=== PATIENT | female | born 1995 | race Caucasian/White ===

== ENCOUNTER 2016-05-09 19:15 | Outpatient (CLI) | payer OTHER ==
[~2016-05-09] VITALS: Ht 167.6 cm; Wt 90.0 kg
[~2016-05-09 19:15] MED LIST: ONDA4TAB46 PO; PRENTAB26 PO
[2016-05-09 19:36] VITALS: Ht 167.6 cm; Wt 90.0 kg
[2016-05-10] MEDS ORDERED: PEDICHW34 PO (08:51)
[2016-05-10] MEDS ORDERED: PRENATAL GUMMY PO (08:52)
== END 2016-05-09 21:17 | disposition home or self-care (01) ==
LOC: C.OPB 19:15 → C.LD 19:16 → C.OPB 21:17
PROVIDERS: ATTEND Obstetrics & Gynecology
DX: O48.0 Post-term pregnancy (principal); Z3A.41 41 weeks gestation of pregnancy

== ENCOUNTER 2016-05-10 07:59 | Inpatient (IN) | payer OTHER ==
[~2016-05-10] VITALS: Ht 167.6 cm; Wt 89.5 kg
[2016-05-10] MEDS ORDERED: LACTATED RINGER'S 1000ML 500 ML IV PRN ×2 (08:32→12:50)
[2016-05-10] MEDS ORDERED: LACTATED RINGER'S 1000ML 1,000 ML IV PRN (08:32)
[2016-05-10] MEDS ORDERED: OXYTOCIN 30 UNITS/500ML NSS IV PRN ×2 (08:45→23:15)
[2016-05-10] MEDS ORDERED: PEDICHW34 PO (08:51)
[2016-05-10] MEDS ORDERED: PRENATAL GUMMY PO (08:52)
[2016-05-10 08:59] VITALS: Ht 167.6 cm; Wt 89.5 kg
[2016-05-10 09:11] LABS: MEAN CELL VOLUME 86.4 fL (80-100); MEAN CORPUSCULAR HEMOGLOBIN 28.7 pg (25-34); MEAN CORPUSCULAR HGB CONC 33.2 g/dl (32-36); MEAN PLATELET VOLUME 9.7 fL (7.4-10.4); PLATELET COUNT 247 K/uL (130-400); RED BLOOD COUNT 4.28 M/uL (4.2-5.4); WHITE BLOOD COUNT 17.01 K/uL (4.8-10.8)
[2016-05-10] MEDS: LACTATED RINGER'S 1000ML 1,000 ML IV SCH ×3 (09:24→21:12)
[2016-05-10 09:38] LABS: ALT/SGPT 15 U/L (12-78); BLOOD UREA NITROGEN 5 mg/dl (7-18); BUN/CREATININE RATIO 10.7 (10-20); CALCIUM 9.1 mg/dl (8.5-10.1); CARBON DIOXIDE 18 mmol/L (21-32); CHLORIDE 108 mmol/L (98-107); CREATININE 0.46 mg/dl (0.60-1.20); GLUCOSE 85 mg/dl (70-99); POTASSIUM 3.5 mmol/L (3.5-5.1); SODIUM 140 mmol/L (136-145)
[2016-05-10 09:41] LABS: ALB/GLOB RATIO 0.6 (0.9-2); ALKALINE PHOSPHATASE 129 U/L (45-117); AST/SGOT 16 U/L (15-37)
[2016-05-10] MEDS ORDERED: BUPIVACAINE 0.25% 30 ML VIAL ONE ×2 (12:10→20:59)
[2016-05-10] MEDS ORDERED: FENTANYL 2MCG/ML ROPIV 1.25MG/ML 100ML BAG EPI ONE (12:10)
[2016-05-10] MEDS ORDERED: FENTANYL CITRATE INJ 50 MCG/1 ML 2 ML VIAL ONE (12:10)
[2016-05-10] MEDS ORDERED: EpHEDrine SULFATE INJ 50 MG/ML AMP ONE (12:10)
[2016-05-10] MEDS ORDERED: NALOXONE HCL INJ 1 MG in SODIUM CHLORIDE 0.9% 1000ML 1,000 ML IV PRN ×4 (12:50)
[2016-05-10] MEDS ORDERED: ONDANSETRON INJ 2 MG/ML 2 ML VIAL IV PRN (13:00)
[2016-05-10] MEDS ORDERED: DiphenhydrAMINE HCL 50 MG/ML VIAL IV PRN (13:00)
[2016-05-10] MEDS ORDERED: EpHEDrine SULFATE INJ 50 MG/ML AMP IV PRN (13:00)
[2016-05-10] MEDS ORDERED: NALBUPHINE HCL INJ 10 MG/ML AMP IV PRN (13:00)
[2016-05-10] MEDS ORDERED: NALOXONE HCL INJ 0.4 MG/1 ML VIAL/CARP IV PRN (13:00)
[2016-05-10] MEDS: FENTANYL 2MCG/ML ROPIV 1.25MG/ML 100ML BAG EPI PRN ×3 (15:03→22:42)
[2016-05-10] MEDS ORDERED: ACETAMINOPHEN 325 MG TAB ONE (19:26)
[2016-05-10] MEDS ORDERED: ACETAMINOPHEN 325 MG TAB PO STA (19:26)
[2016-05-10] MEDS ORDERED: AMPICILLIN IV 2,000 MG in SODIUM CHLOR 0.9% AD-VAN 100ML 100 ML IV SCH (20:00)
[2016-05-10] MEDS ORDERED: SUPERCREAM 0.870 % 15GM JAR EXT PRN (23:15)
[2016-05-10] MEDS ORDERED: OXYCODONE/ACETAMINOPHEN 5-325 TAB PO PRN (23:15)
[2016-05-10] MEDS ORDERED: LANOLIN OINT EXT PRN ×2 (23:15)
[2016-05-10] MEDS ORDERED: ACETAMINOPHEN/CODEINE 300/30MG TAB PO PRN ×2 (23:15)
[2016-05-10] MEDS ORDERED: BENZOCAINE 20% AER SPR 82.5 GM CAN EXT PRN (23:15)
[2016-05-10] MEDS ORDERED: DIPHTHERIA/TETANUS/PERTUSSIS 0.5 ML SYR/VIAL IM. ONE (23:15)
[2016-05-10] MEDS ORDERED: HYDROCORTISONE ACETATE 25 MG SUPP PR PRN (23:15)
[2016-05-10] MEDS ORDERED: ACETAMINOPHEN 325 MG TAB PO PRN (23:15)
[2016-05-11] MEDS: IBUPROFEN 600 MG TAB PO PRN ×3 (00:24→15:56)
--- NOTE | 2016-05-11 00:28 | DELIVERY SUMMARY ---
DATE OF OPERATION: 05/10/2016 PREOPERATIVE DIAGNOSES: 1. Intrauterine at 41-3/7 week. 2. Postdates induction. POSTOPERATIVE DIAGNOSES: Same. PROCEDURES: 1. Yi catheter for cervical ripening. 2. Pitocin augmentation. 3. Amniotomy. 4. Epidural anesthesia. 5. Normal spontaneous vaginal delivery. 6. Second-degree perineal laceration with repair. SURGEON: Dr. Rivas. ANESTHESIA: Epidural. ESTIMATED BLOOD LOSS: 400 mL. PROCEDURE: The patient presented to labor and delivery on the morning of induction after having a Yi catheter placed Tuesday. The catheter had fallen out at 3:00 a.m. She was found to be 4, 75%, -2. Pitocin augmentation was started. When she had got into a good regular pattern, an amniotomy was performed with the cervix exam being the same. The patient then underwent an epidural anesthesia. She progressed, with Pitocin augmentation, to complete, complete and +2 station. She pushed for approximately an hour to deliver a viable male in PORTIA presentation. The anterior shoulder was immediately delivered and then the body was delivered. There was just a short cord, which was clamped and cut on the perineum and the was placed on the maternal abdomen for drying and attention. Cord blood and segment were obtained. Placenta was delivered spontaneously, intact with a 3-vessel cord. Cervix, sulci and rectum were examined and found to be intact. A second-degree perineal laceration was repaired with 3-0 Vicryl in normal standard fashion. Hemostasis obtained with dilute Pitocin and fundal massage. Estimated blood loss was 400 mL. Apgars 8 and 9. Mother and baby doing well at the end of this delivery. I attest to the content of the Intraoperative Record and any orders documented therein. Any exceptio ns are noted below.
[2016-05-11 02:10] VITALS: BP 106/71; PULSE 111; TEMP 37.2; O2SAT 96
[2016-05-11] MEDS ORDERED: ONDANSETRON INJ 2 MG/ML 2 ML VIAL ONE (02:13)
[2016-05-11] MEDS ORDERED: NURSING VERBAL MED ORDER ONE (02:15)
[2016-05-11] MEDS ORDERED: ONDANSETRON INJ 2 MG/ML 2 ML VIAL IV STA (02:22)
[2016-05-11 03:55] VITALS: BP 120/76; PULSE 112; TEMP 36.8; O2SAT 98
--- NOTE | 2016-05-11 06:45 | Medical Student: [facility] ---
Med Student FLY RAISER LOCKSTITCH Progress Nt Date of Service May 11, 2016. Subjective conversation w/ patient, physical exam, chart review Ambulation: limited ambulation (due to light-headedness) Voiding: requires PRN straight cath Passing Gas: Yes Diet Tolerance: Regular Diet Lochia: Moderate Feeding Type: Breast Feeding Pain: controlled with Motrin Review of Systems Constitutional: No fever, No weight loss Respiratory: No shortness of breath Cardiac: No chest pain Abdomen: No nausea, No pain Female : + problem reported (see Subjective) Objective Vital Signs Date Time Temp Pulse Resp B/P Pulse Ox O2 Delivery O2 Flow Rate FiO2 05/11/16 03:55 36.8 112 16 120/76 98 Room Air 05/11/16 03:55 98 Room Air 05/11/16 02:10 37.2 111 16 106/71 96 Room Air Physical Exam General Appearance: WELL-APPEARING, WD/WN Respiratory/Chest: lungs clear, normal breath sounds Cardiovascular: regular rate, rhythm, no murmur Abdomen: non tender, soft Fundus: Firm, Relation to Umbilicus (1cm below umbilicus) Extremities: non-tender, no pedal edema Laboratory Results Last 24 Hours Test 05/10/16 08:55 05/11/16 04:44 White Blood Count 17.01 K/uL Red Blood Count 4.28 M/uL Hemoglobin 12.3 g/dL Hematocrit 37.0 % Mean Corpuscular Volume 86.4 fL Mean Corpuscular Hemoglobin 28.7 pg Mean Corpuscular Hemoglobin Concent 33.2 g/dl RDW Standard Deviation 50.5 fL RDW Coefficient of Variation 16.1 % Platelet Count 247 K/uL Mean Platelet Volume 9.7 fL Sodium Level 140 mmol/L Potassium Level 3.5 mmol/L Chloride Level 108 mmol/L Carbon Dioxide Level 18 mmol/L Anion Gap 14.0 mmol/L Blood Urea Nitrogen 5 mg/dl Creatinine 0.46 mg/dl Est Creatinine Clear Calc Drug Dose 214.3 ml/min Estimated GFR () > 150.0 Estimated GFR (Non- 140.2 BUN/Creatinine Ratio 10.7 Random Glucose 85 mg/dl Calcium Level 9.1 mg/dl Total Bilirubin 0.2 mg/dl Aspartate Amino Transf (AST/SGOT) 16 U/L Alanine Aminotransferase (ALT/SGPT) 15 U/L Alkaline Phosphatase 129 U/L Total Protein 6.9 gm/dl Albumin 2.7 gm/dl Globulin 4.2 gm/dl Albumin/Globulin Ratio 0.6 Medications Current Inpatient Medications Medications (Trade) Dose Ordered Sig/Anni Route Start Time Stop Time Status Last Admin Dose Admin Oxytocin (Pitocin IV) 30 units UD PRN IV 05/10/16 23:15 06/09/16 23:14 Benzocaine (Dermoplast Aero Spr) 1 appln PRN PRN EXT 05/10/16 23:15 06/09/16 23:14 Cocaine HCl (Supercream 0.870% Cr) BID PRN EXT 05/10/16 23:15 05/24/16 23:14 Hydrocortisone Acetate (Anusol Hc Supp) 25 mg BID PRN [place] 05/10/16 23:15 06/09/16 23:14 Lanolin (Lanolin Oint) PRN PRN EXT 05/10/16 23:15 06/09/16 23:14 Prenat Multivit/ [employer]/Iron/Folic Ac ( Vitamin Tab) 1 tab DAILY PO 05/11/16 08:00 06/10/16 07:59 Ibuprofen (Motrin Tab) 600 mg Q4H PRN PO 05/10/16 23:15 06/09/16 23:14 05/11/16 04:28 600 MG Acetaminophen (Tylenol Tab) 650 mg Q6H PRN PO 05/10/16 23:15 06/09/16 23:14 Acetaminophen/ Codeine Phosphate (Tylenol w/ Codeine #3 Tab) 1 tab Q4H PRN PO 05/10/16 23:15 06/09/16 23:14 Acetaminophen/ Codeine Phosphate (Tylenol w/ Codeine #3 Tab) 2 tab Q4H PRN PO 05/10/16 23:15 06/09/16 23:14 Docusate Sodium (coLACE CAP) 100 mg BID PO 05/11/16 08:00 06/10/16 07:59 Assessment and Plan Post- Day Number: 1 Continue Routine Care: 21 year-old female post- day1 had vaginal delivery with secondary perineal laceration repair yesterday. A+, GBS-, Rubella immune Plan Control pain with Motrin Tolerate regular diet well Encourage ambulation Straight cath prn.
[2016-05-11 06:54] LABS: HEMATOCRIT 29.3 % (37-47)
--- NOTE | 2016-05-11 06:54 | Progress Note ---
Subjective May 11, 2016. Subjective conversation w/ patient, physical exam Ambulation: limited ambulation (lightheaded with walking) Voiding: requires PRN straight cath Passing Gas: Yes Diet Tolerance: Regular Diet Lochia: Moderate Feeding Type: Breast Feeding Pain: Well controlled with Motrin Review of Systems Constitutional: No chills, No fever Respiratory: No cough, No shortness of breath Cardiac: No chest pain Breast: No breast pain Abdomen: No nausea, No pain, No vomiting Female : No dysuria Objective Vital Signs Date Time Temp Pulse Resp B/P Pulse Ox O2 Delivery O2 Flow Rate FiO2 05/11/16 03:55 36.8 112 16 120/76 98 Room Air 05/11/16 03:55 98 Room Air 05/11/16 02:10 37.2 111 16 106/71 96 Room Air Physical Exam General Appearance: WELL-APPEARING, WD/WN, NO APPARENT DISTRESS Respiratory/Chest: lungs clear, normal breath sounds Cardiovascular: regular rate, rhythm, no gallop, no murmur Abdomen: non tender, soft Fundus: Firm, Relation to Umbilicus (1cm below) Extremities: no calf tenderness Laboratory Results Last 24 Hours Test 05/10/16 08:55 05/11/16 06:30 White Blood Count 17.01 K/uL Red Blood Count 4.28 M/uL Hemoglobin 12.3 g/dL Hematocrit 37.0 % Mean Corpuscular Volume 86.4 fL Mean Corpuscular Hemoglobin 28.7 pg Mean Corpuscular Hemoglobin Concent 33.2 g/dl RDW Standard Deviation 50.5 fL RDW Coefficient of Variation 16.1 % Platelet Count 247 K/uL Mean Platelet Volume 9.7 fL Sodium Level 140 mmol/L Potassium Level 3.5 mmol/L Chloride Level 108 mmol/L Carbon Dioxide Level 18 mmol/L Anion Gap 14.0 mmol/L Blood Urea Nitrogen 5 mg/dl Creatinine 0.46 mg/dl Est Creatinine Clear Calc Drug Dose 214.3 ml/min Estimated GFR () > 150.0 Estimated GFR (Non- 140.2 BUN/Creatinine Ratio 10.7 Random Glucose 85 mg/dl Calcium Level 9.1 mg/dl Total Bilirubin 0.2 mg/dl Aspartate Amino Transf (AST/SGOT) 16 U/L Alanine Aminotransferase (ALT/SGPT) 15 U/L Alkaline Phosphatase 129 U/L Total Protein 6.9 gm/dl Albumin 2.7 gm/dl Globulin 4.2 gm/dl Albumin/Globulin Ratio 0.6 Medications Current Inpatient Medications Medications (Trade) Dose Ordered Sig/Anni Route Start Time Stop Time Status Last Admin Dose Admin Oxytocin (Pitocin IV) 30 units UD PRN IV 05/10/16 23:15 06/09/16 23:14 Benzocaine (Dermoplast Aero Spr) 1 appln PRN PRN EXT 05/10/16 23:15 06/09/16 23:14 Cocaine HCl (Supercream 0.870% Cr) BID PRN EXT 05/10/16 23:15 05/24/16 23:14 Hydrocortisone Acetate (Anusol Hc Supp) 25 mg BID PRN [place] 05/10/16 23:15 06/09/16 23:14 Lanolin (Lanolin Oint) PRN PRN EXT 05/10/16 23:15 06/09/16 23:14 Prenat Multivit/ [place]/Iron/Folic Ac ( Vitamin Tab) 1 tab DAILY PO 05/11/16 08:00 06/10/16 07:59 Ibuprofen (Motrin Tab) 600 mg Q4H PRN PO 05/10/16 23:15 06/09/16 23:14 05/11/16 04:28 600 MG Acetaminophen (Tylenol Tab) 650 mg Q6H PRN PO 05/10/16 23:15 06/09/16 23:14 Acetaminophen/ Codeine Phosphate (Tylenol w/ Codeine #3 Tab) 1 tab Q4H PRN PO 05/10/16 23:15 06/09/16 23:14 Acetaminophen/ Codeine Phosphate (Tylenol w/ Codeine #3 Tab) 2 tab Q4H PRN PO 05/10/16 23:15 06/09/16 23:14 Docusate Sodium (coLACE CAP) 100 mg BID PO 05/11/16 08:00 06/10/16 07:59 Assessment and Plan Post- Day#: 1 Continue Routine Care: - Vital Signs reviewed and WNL (temp max 36.8) - Blood Type: A+, GBS- , Rubella Immune - Patient doing well clinically - Encourage Ambulation today. Patient lightheaded yesterday but today is feeling better and has been eating and getting fluids. - Patient received straight cath yesterday, ensure urination returns to normal today. At bedside this morning patient states she has no urge to urinate. - Tolerating PO Diet - Pain well controlled with [place] Resident Physician Supervision Note: I interviewed and examined the patient. Discussed with Dr. Mann and agree with findings and plan as documented in the note. Any exceptions or clarifications are listed here: Doing better this am. If unable to void, may need to consider Yi. Documented By: Sabina Rivas
[2016-05-11 07:25] VITALS: BP 105/69; PULSE 89; TEMP 36.7; O2SAT 98
[2016-05-11] MEDS: DOCUSATE SODIUM 100 MG CAP PO SCH ×2 (08:32→20:02)
[2016-05-11] MEDS: PRENATAL VITAMIN TAB PO SCH (08:32)
--- NOTE | 2016-05-11 10:33 | Anesthesia Procedure Note ---
Anesthesia Epidural Removal Nt Date & Time May 11, 2016 at 10:33 Vital Signs Vital Signs Past 12 Hours Date Time Temp Pulse Resp B/P Pulse Ox O2 Delivery O2 Flow Rate FiO2 05/11/16 07:25 Room Air 05/11/16 07:25 36.7 89 16 105/69 98 Room Air 05/11/16 03:55 36.8 112 16 120/76 98 Room Air 05/11/16 03:55 98 Room Air 05/11/16 02:10 37.2 111 16 106/71 96 Room Air Notes Mental Status: alert / awake / arousable, participated in evaluation Nausea / Vomiting: adequately controlled Pain: adequately controlled Airway Patency, RR, SpO2: stable & adequate BP & HR: stable & adequate Hydration State: stable & adequate Neuraxial Anesthesia: was administered Anesthetic Complications: no major complications apparent, pt satisfied with anesthetic care Epidural: removed without complications, with tip intact
[2016-05-11 11:25] VITALS: BP 103/63; PULSE 98; TEMP 36.6; O2SAT 100
[2016-05-11 15:40] VITALS: BP 111/67; PULSE 100; TEMP 36.7; O2SAT 98
[2016-05-11 20:00] VITALS: BP 106/69; PULSE 111; TEMP 36.6
[2016-05-12] VITALS: BP 101/69; PULSE 99; TEMP 36.4
--- NOTE | 2016-05-12 07:00 | Progress Note ---
Subjective May 12, 2016. Subjective conversation w/ patient, physical exam Ambulation: ambulating normally Voiding: no voiding problems Passing Gas: Yes Diet Tolerance: Regular Diet Lochia: Small Feeding Type: Breast Feeding Pain: No pain reported this morning, minor cramping Review of Systems Constitutional: No chills, No fever Respiratory: No cough, No shortness of breath Cardiac: No chest pain Breast: No breast pain Abdomen: No nausea, No pain, No vomiting Female : No dysuria Objective Vital Signs Date Time Temp Pulse Resp B/P Pulse Ox O2 Delivery O2 Flow Rate FiO2 05/12/16 00:00 Room Air 05/12/16 00:00 36.4 99 16 101/69 05/11/16 20:00 36.6 111 16 106/69 05/11/16 15:40 98 Room Air 05/11/16 15:40 36.7 100 20 111/67 98 Room Air 05/11/16 11:25 36.6 98 16 103/63 100 Room Air 05/11/16 07:25 Room Air 05/11/16 07:25 36.7 89 16 105/69 98 Room Air Physical Exam General Appearance: WELL-APPEARING, WD/WN, NO APPARENT DISTRESS Respiratory/Chest: lungs clear, normal breath sounds Cardiovascular: regular rate, rhythm, no gallop, no murmur Abdomen: non tender, soft Fundus: Firm, Relation to Umbilicus (1cm below umbilicus) Extremities: no calf tenderness Medications Current Inpatient Medications Medications (Trade) Dose Ordered Sig/Anni Route Start Time Stop Time Status Last Admin Dose Admin Oxytocin (Pitocin IV) 30 units UD PRN IV 05/10/16 23:15 06/09/16 23:14 Benzocaine (Dermoplast Aero Spr) 1 appln PRN PRN EXT 05/10/16 23:15 06/09/16 23:14 05/11/16 08:33 1 APPLN Cocaine HCl (Supercream 0.870% Cr) BID PRN EXT 05/10/16 23:15 05/24/16 23:14 05/11/16 08:32 15 GM Hydrocortisone Acetate (Anusol Hc Supp) 25 mg BID PRN [place] 05/10/16 23:15 06/09/16 23:14 Lanolin (Lanolin Oint) PRN PRN EXT 05/10/16 23:15 06/09/16 23:14 Prenat Multivit/ [place]/Iron/Folic Ac ( Vitamin Tab) 1 tab DAILY PO 05/11/16 08:00 06/10/16 07:59 05/11/16 08:32 1 TAB Ibuprofen (Motrin Tab) 600 mg Q4H PRN PO 05/10/16 23:15 06/09/16 23:14 05/11/16 15:56 600 MG Acetaminophen (Tylenol Tab) 650 mg Q6H PRN PO 05/10/16 23:15 06/09/16 23:14 Acetaminophen/ Codeine Phosphate (Tylenol w/ Codeine #3 Tab) 1 tab Q4H PRN PO 05/10/16 23:15 06/09/16 23:14 Acetaminophen/ Codeine Phosphate (Tylenol w/ Codeine #3 Tab) 2 tab Q4H PRN PO 05/10/16 23:15 06/09/16 23:14 Docusate Sodium (coLACE CAP) 100 mg BID PO 05/11/16 08:00 06/10/16 07:59 05/11/16 20:02 100 MG Assessment and Plan Post- Day#: 2 Continue Routine Care: Resident Physician Supervision Note: I interviewed and examined the patient. Discussed with Dr. Mann and agree with findings and plan as documented in the note. Any exceptions or clarifications are listed here: [None] Documented By: Betsy Rawls - Vital Signs reviewed and WNL (temp max 36.4) - Blood Type: A+, GBS- , Rubella Immune - Patient doing well clinically - Ambulating well - Tolerating PO Diet - No pain reported this morning - Discharge today
--- NOTE | 2016-05-12 07:03 | Discharge Instructions ---
Discharge Instructions Admission Reason for Admission: Induction Discharge Discharge Diagnosis / Problem: Vaginal delivery Discharge Goals Goal(s): Routine recovery after delivery Medications Continue Dispensed Medications: supercream, dermaplast, tucks, lansinoh Activity Recommendations Activity Limitations: per Instructions/Follow-up section . Instructions / Follow-Up Instructions / Follow-Up ACTIVITY RECOMMENDATIONS: * Gradual return to full activity over the next 2-3 weeks. * No lifting - nothing heavier than baby over the next 2-3 weeks. * Do not engage in vigorous exercise, sexual activity or sports until cleared by your physician. * Do not drive or operate any motorized equipment until cleared by your physician. * You may shower/bathe daily. MEDICATIONS: For discomfort or pain, you may use Acetaminophen (Tylenol), Ibuprofen (Advil), or Naproxen (Aleve) following the package directions. For constipation you may use Colace following the package directions. BREAST CARE: If you are not breast feeding: * Wear a supportive bra 24 hours a day for one to two weeks. * Avoid stimulating your breasts and nipples as much as possible during the first few weeks after delivery. * When taking a shower, have the warm water hit your back, not breasts. * When your breasts feel full, apply ice packs. Usually three to four times a day helps ease the discomfort. * Take a mild pain medication (Tylenol / Motrin) when you are uncomfortable. If breast feeding: * Use breast milk to lubricate nipples. Lansinoh cream may be used for sore nipples. You do not need to remove cream prior to breast feeding. If using a different brand of cream, check the label for directions regarding removal of cream prior to nursing. * Wear a supportive bra. * If having problems with breasts or breast feeding, call a oracle database consultant or your health care provider. EPISIOTOMY CARE: After delivery, if you have an episiotomy (stitches), the following steps will ease discomfort and aid healing. * For the first 24 hours after delivery, place ice packs next to your episiotomy to help reduce swelling. * After the first 24 hour-period, sitz baths, either portable or in the tub, are suggested. A shower with a shower arm sprayed over the episiotomy may be comforting. * Shanda care should be done after each voiding and bowel movement. Squirt warm water from a plastic bottle over the perineum (region of the body between the anus and urinary opening) and pat dry. * Use Dermoplast to ease discomfort. Shake container. [place] directly over the episiotomy. Place a Tucks on a clean sanitary pad next to your episiotomy. SPECIAL CARE INSTRUCTIONS: When you are discharged from the hospital, it is important for you to follow the instructions listed below: * During the first week at home, you should be able to care for yourself and your baby. In addition, the usual light household activities are encouraged. * Limit your activities to the way you feel. Do not try to clean the house or move furniture. Be sensible. * If you actively engage in sports and have done so up until the time of your delivery, you may resume these activities as soon as you feel able. This may take up to one month or even longer. Use good judgment. * Continue to take your vitamins for at least six weeks after the of your baby. * Your diet need not be limited unless you were on a special diet before your delivery. Breast-feeding mothers need around 2500 calories per day and at least 64-80 ounces of fluid per day (8 to 10 glasses). * You should eat foods from the four major food groups. Crash diets or fad diets are to be avoided. Eating lean meats, fresh fruits and vegetables, low-fat dairy products, high fiber foods and a regular exercise program, will help you get back to your pre- weight without putting your health at risk. * Constipation is sometimes a problem after delivery. Take a mild laxative as needed. If breast feeding, Milk of Magnesia is acceptable to use. You may use a suppository or Fleets enema if no episiotomy. * A daily shower or tub bath is suggested. Be sure to thoroughly and gently dry the perineum. * A bloody vaginal discharge will usually continue until around four weeks post . A small amount of bleeding may continue for as long as six weeks. Vaginal discharge changes from the bright red bleeding after delivery to pink then brownish and finally yellowish-pink before becoming white and disappearing. * Bleeding may increase with activity. Your first period may come in 4-8 weeks. If you are breast feeding, your period may be delayed even longer. * [place] (sex) can begin whenever both you and your partner feel comfortable and do not have any form of genital infection. It is recommended that you wait at least six weeks for internal and external healing to occur. If you have questions, please talk to your health care practitioner. A condom should be used to prevent infection and . * Foreplay, gentle intercourse and lubrication is very important the first several times to prevent pain. A water-based lubricant such as K-Y jelly or Astroglide may be used. * If you have RH negative blood and your baby is RH positive, you will receive RHOGAM by injection prior to discharge. The nurse will give you a card to keep with you that has the date and place that you received RHOGAM after delivery. * During your care, you had a Rubella screen done to check for the presence of rubella antibodies in your blood. If your test was negative, you will receive a Rubella vaccine prior to discharge. This vaccine may cause a fever, soreness at the injection site and flu-like symptoms. If these symptoms persist, notify your health care practitioner. is not advised for one month after a Rubella vaccine. * Verbalizes understanding of car seat law as reviewed with patient nursing. * Car Seat hand-out given and reviewed with patient by nursing. * Shaken baby information reviewed with patient by nursing. Call you doctor if: * Heavy bleeding (saturating several pads an hour) or passing clots the size of your fist. * A fever >101 degrees F (38.3 degrees C) on two occasions four hours apart and /or chills. * Unusual pain in the pelvic or vaginal areas. * "Baby Blues" lasting longer than two weeks. If you have any questions or concerns, call your health care practitioner at . FOLLOW UP VISIT: * Please call the office at to schedule a 6 week examination. It is important you keep this appointment. It is important for you to make arrangements for either yearly or twice yearly check-ups thereafter. Current Hospital Diet Patient's current hospital diet: Regular Diet Discharge Diet Recommended Diet: Regular Diet Pending Studies Studies pending at discharge: no Medical Emergencies . Who to Call and When: Medical Emergencies: If at any time you feel your situation is an emergency, please call 911 immediately. . Non-Emergent Contact Non-Emergency issues call your: Firer Watertender . . "Provider Documentation" section prepared by Neo Mann. VTE Core Measure Inpt VTE Proph given/why not?: Treatment not indicated
[2016-05-12 08:15] VITALS: BP 125/81; PULSE 91; TEMP 36.7
[2016-05-12] MEDS: PRENATAL VITAMIN TAB PO SCH (09:03)
[2016-05-12] MEDS: DOCUSATE SODIUM 100 MG CAP PO SCH (09:03)
[2016-05-12] MEDS ORDERED: MISC-696 (13:22)
[2016-05-12 14:25] VITALS: BP_DIAS 81; PULSE 91; TEMP 36.7
== END 2016-05-12 14:25 | disposition home or self-care (01) | DRG 775 ==
LOC: C.LD 07:59 → C.OBG 05-11 02:10
PROVIDERS: ADMIT Obstetrics & Gynecology; ATTEND Obstetrics & Gynecology
PROC: 10E0XZZ Delivery of Products of Conception, External Approach (ICD-10-PCS; principal; 2016-05-10)
PROC: 0KQM0ZZ Repair Perineum Muscle, Open Approach (ICD-10-PCS; principal; 2016-05-10)
PROC: 3E0P7GC Introduction of Other Therapeutic Substance into Female Reproductive, Via Natural or Artificial Opening (ICD-10-PCS; 2016-05-10)
DX: O48.0 Post-term pregnancy (principal); O70.1 Second degree perineal laceration during delivery; Z3A.41 41 weeks gestation of pregnancy; Z37.0 Single live birth

== ENCOUNTER → 2017-01-19 | Outpatient (CLI) | payer BC ==
[~2017-01-19] MED LIST changes: +CEPH500C PO; +CEPH500C2 PO; +HYDR-5688 PO; +MISC-696; -ONDA4TAB46 PO; +PRENATAL GUMMY PO; -PRENTAB26 PO
--- NOTE | 2017-01-19 12:45 | DIAGNOSTIC IMAGING REPORT ---
R KNEE 4 OR MORE VIEWS CLINICAL HISTORY: 21 years-old Female presenting with BILATERAL KNEE PAIN. TECHNIQUE: Frontal, lateral, tunnel, and sunrise views of the right knee were obtained. COMPARISON: Correlation made to plain radiographs of the left knee performed the same day. FINDINGS: No acute fracture or malalignment. No degenerative change. No large knee joint effusion. No radiographic evidence of soft tissue abnormality. No subluxation of the patella. IMPRESSION: No acute osseous injury of the right knee. Electronically signed by: Maurizio Pleitez M.D. 01/19/2017 12:44 PM Dictated Date/Time: 01/19/2017 12:43 PM
--- NOTE | 2017-01-19 13:30 | DIAGNOSTIC IMAGING REPORT ---
L KNEE 4 OR MORE VIEWS CLINICAL HISTORY: Bilateral knee pain. No recent trauma. COMPARISON: None FINDINGS: Alignment of the left knee is anatomic. No fracture or osseous lesion is identified. There is no joint effusion. The joint spaces are preserved. IMPRESSION: Normal left knee radiographs. Electronically signed by: Talha Reyes M.D. 01/19/2017 1:29 PM Dictated Date/Time: 01/19/2017 1:28 PM
== END | disposition home or self-care (01) ==
LOC: C.RAD1850 11:36
PROVIDERS: ATTEND Physician Assistant
DX: M25.561 Pain in right knee (principal); M25.562 Pain in left knee

== ENCOUNTER 2017-01-22 09:10 | Emergency (ER) | payer BC ==
[~2017-01-22] VITALS: Ht 167.6 cm; Wt 79.0 kg
[~2017-01-22 09:10] MED LIST changes: -CEPH500C PO; -CEPH500C2 PO; -HYDR-5688 PO
[2017-01-22 09:24] VITALS: TEMP 37; Ht 167.6 cm; Wt 79.0 kg
[2017-01-22] MEDS ORDERED: XYLOCAINE 1%/SOD BICARB 20 ML VIAL INFIL ONE (10:00)
[2017-01-22] MEDS ORDERED: CEPH500C PO (10:20)
[2017-01-22 10:33] VITALS: BP 122/82; PULSE 92; O2SAT 98
--- NOTE | 2017-01-22 17:27 | EMERGENCY ROOM VISIT NOTE ---
ED Visit Note First contact with patient: 09:39 CHIEF COMPLAINT: Infected cyst on buttock HISTORY OF PRESENT ILLNESS: This 22-year-old white female patient has had a painful swelling at the top of the gluteal crease of the buttocks for 2 days. There has been no injury to the area and no drainage. The patient denies fever , chills, or loss of appetite. The pain is steady, moderately severe, and hurts worse when sitting or bending over. It has become worse with time. Her mother accompanies her today. No prior history of similar condition. REVIEW OF SYSTEMS: Head: No headache, injury or neck pain. Cardiac: No chest pain, diaphoresis, dyspnea on exertion, orthopnea, pedal edema, or palpitations. Respiratory: No cough, change in sputum, wheezes, hemoptysis, shortness of breath, or stridor. Gastrointestinal: No abdominal pain, blood in stools, diarrhea, loss of appetite, nausea, or vomiting. General: No fever or chills, fatigue, loss of appetite, or significant recent weight gain or loss. PMH: Benign Previous surgeries: [place] tooth extraction Current medications: None Allergies: NKDA Family history: Noncontributory. SOCIAL HISTORY: Patient lives at home. No tobacco use, no EtOH use. PHYSICAL EXAM: Vital Signs: Afebrile. Reviewed and filed in patient's chart. Skin: Warm and dry with good turgor. No rashes or lesions. No ecchymosis. There is a fluctuant, tender swelling at the top of the gluteal crease. It is erythematous. There is no pointing. It feels like a typical subcutaneous abscess. It is very tender to touch. Redness measures approximately 1 in diameter. The patient is not diaphoretic. No abrasions. General: The patient appears well in general and is not in acute distress. Laying on a bed. Alert and oriented. Musculoskeletal: Gross motor function of the lower extremities is intact and unremarkable. Neurologic: Gross sensation is intact across lower extremities and pelvis by soft touch. EMERGENCY DEPARTMENT COURSE: After Betadine cleansing and administering local 1 % lidocaine anesthesia (4 mL), the abscess was incised with a number 11 scalpel blade. A large amount of foul-smelling purulent material drained and more was expressed by pressure. The abscess cavity was then irrigated using normal sterile saline under jet spray lavage. A needle flatbed driver was used to break up any interior loculations. It was irrigated a second time with a small amount of clot material expressed. 1/2 inch iodoform gauze was used as a drain and a dressing was applied. DIAGNOSIS: Pilonidal cyst-abscess DISCHARGE INSTRUCTIONS AND TREATMENT: Patient was educated regarding today's findings. Conservative care measures were discussed. Return in 48 hours for packing removal. She was prescribed Keflex 500 mg 4 times a day for 5 days. Change the dressing if it becomes bloody or soiled. Tylenol and Motrin every 6 hours if needed for the pain. Instruction sheet was provided on sitz baths, to be started after her packing is removed. Possibility of having this excised by General surgery was discussed, if it should recur. Problem List Surgical Problems: (1) History of wisdom tooth extraction Status: Resolved Current/Historical Medications Scheduled Cephalexin Monohydrate (Keflex), 500 MG PO QID Allergies Coded Allergies: No Known Allergies (Verified , None, 01/22/17) Vital Signs Date Time Temp Pulse Resp B/P (MAP) Pulse Ox O2 Delivery O2 Flow Rate FiO2 01/22/17 10:33 92 16 122/82 98 01/22/17 09:24 37.0 106 18 131/94 98 Room Air Departure Information Impression Primary Impression: Pilonidal cyst with abscess Dispostion Home / Self-Care Prescriptions Cephalexin Monohydrate (Keflex) 500 Mg Cap 500 MG PO QID, #20 CAP Prov: Bobby Webber,P.A. 01/22/17 Forms WORK / SCHOOL INSTRUCTIONS, HOME CARE DOCUMENTATION FORM, MOTRIN USE, TYLENOL USE, IMPORTANT VISIT INFORMATION Patient Instructions [facility], [facility] Additional Instructions Follow-up with your PCP or return to the ED in 2 days for packing removal Start sitz baths at that point-sit for 5-10 minutes in warm soapy water 3-4 times per day Keflex one pill 4 times a day 5 days Tylenol and Motrin every 6 hours as needed for discomfort Use a doughnut pillow when sitting Return to the ED for any other concerns
== END 2017-01-22 10:34 | disposition home or self-care (01) ==
LOC: C.EDB 09:12 → C.EDA 10:34
DX: L05.01 Pilonidal cyst with abscess (principal)

== ENCOUNTER 2017-01-24 10:18 | Emergency (ER) | payer BC ==
[~2017-01-24] VITALS: Ht 167.6 cm; Wt 79.0 kg
[~2017-01-24 10:18] MED LIST changes: +CEPH500C PO; -MISC-696; -PRENATAL GUMMY PO
[2017-01-24 10:34] VITALS: TEMP 36.9; Ht 167.6 cm; Wt 79.0 kg
[2017-01-24] MEDS ORDERED: CEPH500C2 PO (11:01)
[2017-01-24] MEDS ORDERED: HYDR-5688 PO (11:16)
--- NOTE | 2017-01-24 11:17 | EMERGENCY ROOM VISIT NOTE ---
ED Visit Note First contact with patient: 10:58 Chief Complaint: Packing Removal History of Present Illness: This patient is a 22-year-old female who presents to the Emergency Department via private vehicle for packing removal of pilonidal abscess. The patient reports that the wound greatly improved since last visit. Patient states that they have been following the discharge instructions completely. Patient rates her current discomfort as a 6/10. They report this is reportedly less than previous exam. They report a minimal purulent drainage during sitz baths. Patient denies any development of any fevers, chills, sweats, streaking, discharge, or foul odor. Medications: As noted below Allergies: None PMH: No pertinent SHx: Patient lives locally with family ROS: All pertinent positive and negative review of systems are appropriately documented in the History of Present Illness. Physical Exam: VITAL SIGNS - Vital signs and Nursing Notes were reviewed. Stable. GENERAL -22 year old female, well-developed, well-nourished, and in no acute distress. SKIN -there is a well-healed incision on the patient's pilonidal region with packing. No induration or erythema. No fluctuance. NEURO - Patient is A&Ox3 and communicates appropriately with the provider. ED Course: Previous ED visit note was reviewed by myself prior to patient evaluation. The wound was assessed as describe above. Patient states that the wound has improved since previous visit. Compared to description in previous ED visit note , the wound has improved. Packing was removed from the wound and a very minimal amount of purulent drainage was expressed from the wound. After further discussion with the patient, I am comfortable discharging the patient to home for completion of the treatment plan outlined in previous ED discharge summary. The wound was irrigated with normal saline sterile, with only a small amount of clotted blood and no purulence. The incision is well-healed, and less than 2 mm in size therefore believe that the risk of further incising and repacking is a greater risk than irrigation and gentle bandage. Discharge instructions, including worrisome symptoms for return visit to the Emergency Department were discussed with the patient who acknowledges understanding. She is to continue sitz baths. She was thoroughly educated on the possibility of recurrence, and is to follow with her family doctor. She notes that she's been using ibuprofen and Tylenol, but still has some pain not controlled by this. I did elect to provide [place] for a short course but did inform her that if the pain is worsening she is to return. No red flags in the PDMP. Patient was discharged to home afebrile and in good condition. She denied chance of . Problem List Surgical Problems: (1) History of wisdom tooth extraction Status: Resolved Current/Historical Medications Scheduled Cephalexin Monohydrate (Keflex), 500 MG PO QID Scheduled PRN Hydrocodone/Acetaminophen 5MG/325MG ([place] 5MG/325MG), 1-2 TABLET PO Q6 PRN for Pain Allergies Coded Allergies: No Known Allergies (Verified , None, 01/22/17) Vital Signs Date Time Temp Pulse Resp B/P (MAP) Pulse Ox O2 Delivery O2 Flow Rate FiO2 01/24/17 10:34 36.9 88 16 121/80 97 Room Air Departure Information Impression Primary Impression: Abscess packing removal Dispostion Home / Self-Care Condition GOOD Prescriptions Hydrocodone/Acetaminophen 5MG/325MG ([place] 5MG/325MG) Tab 1-2 TABLET PO Q6 Y for Pain, #15 TAB For Initial Treatment Prov: Flo Walker PA-C 01/24/17 Referrals No Doctor, Assigned (PCP) Patient Instructions [facility] Additional Instructions Discharge Instructions: You were seen in the Emergency Department today for a Wound Recheck/packing removal. You should continue to follow the Discharge Instructions outlined for you in your previous Emergency Department visit. Continue to look for signs of infection of the wound including: increased pain, swelling, foul discharge, streaking, or increased temperature. If any of these are noticed you should return to the Emergency Department for further assessment and treatment. You have been prescribed NORCO to be used for pain control/break through pain not controlled by ibuprofen. This is a narcotic medication. You cannot drive or consume alcohol while on this medicine. This medicine should only be used for pain that cannot be controlled with [id number] pain medicines. PLEASE NO TYLENOL WITH THIS IT ALREADY CONTAINS IT For pain control, you can use the following [id number] medicines (if >12 yo): - Regular strength (325mg/tab) Tylenol (acetaminophen) 2 tabs every 4-6 hours as needed. Do not exceed 12 tablets in a 24 hour period. Avoid taking more than 3 grams (3000 mg) of Tylenol per day. This includes any other sources of acetaminophen you may take on a regular basis. - Regular strength (200 mg/tab) Advil (ibuprofen) 1-2 tabs every 4-6 hours as needed. Do not exceed a dose of 3200 mg per day. Return to the emergency department if your symptoms worsen despite treatment course outlined above.
[2017-01-24 11:26] VITALS: BP 104/75; PULSE 65; O2SAT 98
== END 2017-01-24 11:27 | disposition home or self-care (01) ==
LOC: C.EDB 10:19 → C.EDD 11:27
DX: Z09 Encounter for follow-up examination after completed treatment for conditions other than malignant neoplasm (principal); L05.01 Pilonidal cyst with abscess

== ENCOUNTER 2021-05-05 10:06 | Inpatient (IN) ==
[2021-05-05] MEDS ORDERED: ALBUT/IPRATROP 3MG/0.5MG NEB 3 ML VIAL NEB STA (10:30)
[2021-05-05] MEDS ORDERED: ACETAMINOPHEN 500 MG TAB PO STA (10:30)
--- NOTE | 2021-05-05 10:40 | Emergency Department Note ---
Impression & Plan Pneumonia due to COVID-19 virus, Hypoxia, Tachycardia, Tachypnea, Chest pain, Shortness of breath ED Provider Note CHIEF COMPLAINT: Respiratory difficulties HISTORY OF PRESENT ILLNESS: Leora Arriaza is a 26 year old female with recent +COVID-19 diagnosed on 05/01/20 who presents to the Emergency Department for evaluation of respiratory difficulties with associated chest pains which has been worsening over the past few days. When the patient's symptoms first began on 04/29/20, she had fevers up to 101F with intermittent chills and generalized body aches. The patient had been taking ibuprofen with improvement of her symptoms until she then developed a non-productive cough, mid sternal and left sided chest pains with dyspnea and shortness of breath. At first, she was only feeling short of breath with exertion, however, she is now feeling out of breath when resting and becomes winded when talking. She also notes lack of appetite and fatigue but otherwise denies specific abdominal pain, nausea, vomiting, diarrhea or urinary symptoms. The patient is on control, denies prolonged periods of immobilization. She does not smoke. The patient is not vaccinated for COVID-19. She did receive the influenza vaccine. REVIEW OF SYSTEMS: 10 systems were reviewed and were negative unless otherwise stated in HPI as above PHYSICAL EXAM: VITALS: Vitals are noted on the nurse's note and reviewed by myself. Tachycardic, vital signs otherwise stable. General: Resting in at the edge of the bed, appears uncomfortable but no acute distress HEENT: Normocephalic, atraumatic, PERRL, EOMI, bilateral TMs clear without bulging or abnormal fluid, mucous membranes moist, oropharynx clear without erythema or exudates Neck: No cervical lymphadenopathy, non-tender, ROM intact Resp: Poor inspiratory effort on room air due to exacerbation of chest pain, winded with talking, lung sounds clear without wheezing, rales or rhonchi, tender to palpation over the left lateral chest wall CV: Tachycardic rate, regular rhythm, peripheral pulses palpated Back: No CVA tenderness Abd: Soft, non-distended, non-tender MSK:Moving all extremities without apparent pain or difficulty Integumentary: Warm, dry, no appreciable rash Neuro: Awake, alert, interacting and answering questions appropriately Differential diagnosis includes COVID-19, pneumonia, bronchitis, pleuritis, costochondritis, PE, cardiac etiology, musculoskeletal among others were considered EMERGENCY DEPARTMENT COURSE: Physical exam and history were performed. Nursing triage notes, EMR, and medication list were personally reviewed. Vital sings reviewed. Initially tachycardic at 113 bpm but other vital signs stable. Maintaining ox sats 95% on room air. Afebrile. Patient appears to have respiratory difficulties with associated chest pains which has been worsening over the past few days in the setting of a +COVID-19 diagnosis on 05/01/20 as described above. On exam, she has poor inspiratory effort on room air due to exacerbation of chest pain, winded with talking, lung sounds clear without wheezing, rales or rhonchi, tender to palpation over the left lateral chest wall. No other significant findings on exam. The patient was offered medication and was given a DuoNeb breathing treatment and Tylenol 1,000 mg. EKG was obtained and showed sinus tachycardia at 103 bpm, no ectopy or concern for acute ischemic change. Chest x-ray was obtained and reviewed by radiologist and myself as below. This showed moderate bilateral airspace opacities consistent with COVID-19 pneumonia. Labs were obtained and reviewed by myself as below. Of note, leukopenia at 2.80, low concern for anemia with hemoglobin 14.1. Electrolytes WNL, renal indices stable. LFTs nondiagnostic. Troponin <0.03. Given the patient's recent +COVID-19 diagnosis and symptoms as noted above, we did discuss obtaining a CTPE to assess for possible clot. She did agree to obtain the study. CT angiogram chest was obtained and reviewed by radiologist and myself as below. This was negative for PE, however it did show multifocal airspace opacities compatible with history of COVID19 pneumonia. Upon reevaluation, the patient still appeared uncomfortable and stated that she only had minimal relief after receiving the DuoNeb breathing treatment. She continued to be tachycardic at 105 bpm, respiratory rate had increased to 29/min and her oxygen saturations were down to 88% on room air. Also with mild elevation in temperature to 37.5C. I discussed the results of the above findings with her at bedside as well as my attending, Dr. Pardo, who is all throughout the patient's course of care. As she is hypoxic on room air, tachypneic and tachycardic in the setting of her positive COVID19 diagnosis, I do feel that she would benefit from continued management in the hospital. IV Decadron 6 mg and 1 L NSS were ordered. I did contact Dr. Huerta of the [facility] hospitalist group. He agreed to evaluate the patient for further management. The patient verbalized understanding and agreement with the treatment plan as above. The chart was completed utilizing [employer] Speech Voice Recognition Software. Grammatical errors, random word insertions, pronoun errors, and incomplete sentences are an occasional consequence of this system due to software limitations, ambient noise, and hardware issues. Any formal questions or concerns about the content, text, or information contained within the body of this dictation should be directly addressed to the provider for clarification. Past Med/Surg History Medical History Anxiety Carpal tunnel syndrome of right wrist Contraceptive use Verena-Danlos syndrome Elevated AST (SGOT) Family history of reaction to anesthesia GRANDMOTHER - N/V, SLOW TO WAKE UP History of anemia History of anemia History of chlamydia History of pneumonia History of varicella HLD (hyperlipidemia) Migraine headache Vitamin D deficiency Surgical History H/O hand surgery R carpal tunnel release S/P tooth extraction [place] teeth removed Family History Sister Anxiety Thyroid cancer Factor V Leiden mutation Family/Other Anemia Multiple gestation Diabetes Endometriosis Gestational diabetes Hypercholesteremia Hypertension Osteoporosis Ovarian cyst Grandfather (Maternal) Anemia Factor V Leiden mutation Mother Lung cancer Breast cancer Grandmother (Maternal) Breast cancer Aunt Breast cancer Family/Other Breast cancer Denies family history of Colon cancer Ovarian cancer Prostate cancer Myocardial infarction Social History Smoking Status: Never smoker Second Hand Exposure: No; Hx Alcohol Use: Yes Alcohol Intake Frequency: Monthly or Less Hx Substance Use: No Preferred Language: Czech Communication Ability: Effective Visual Impairment: No Limitations Hearing Ability: Normal [place] Guide Required: No Beliefs That Will Affect Care: None marital status: Single Current Living Situation: Significant Other Current Living Situation Comment: FIANCE AND SON current occupational status: employed current occupation: Dental office Feels Safe at Home: Yes Dental Care, Regularly: Yes Physical Activity Frequency: Does not Exercise Seatbelt Use: always Sunscreen Use: No Assistive Devices: Contacts and Glasses Allergies Allergies Allergy/AdvReac Type Severity Reaction Status Date / Time nickel Allergy Mild Rash Verified 05/05/21 12:16 Home Meds Home Medications Medication Instructions Recorded Confirmed multivitamin 1 tab PO QAM 09/27/18 05/05/21 desogestrel 0.15 mg-ethinyl 1 tab PO HS 05/05/21 05/05/21 estradiol 0.03 mg tablet (Isibloom) Previous Rx's Medication Instructions Recorded ibuprofen 800 mg tablet 800 mg PO Q8H PRN #30 tab 04/20/21 Results & Data (ED) Vital Signs Vital Signs - 24 hr 05/05/21 10:09 05/05/21 11:01 05/05/21 11:30 Temperature 37.5 C Temperature Source Temporal Artery Scan Pulse Rate 114 H 114 H Pulse Rate [Apical] 103 H Pulse Rate from SpO2 Sensor 117 H Pulse Rhythm [Apical] Pulse Strength [Apical] Respiratory Rate 20 24 27 H Respiratory Effort / Characteristics Respiratory Depth Respiratory Pattern Blood Pressure 129/93 130/79 Blood Pressure [Left Arm] 125/94 Blood Pressure Mean 105 96 Blood Pressure Mean [Left Arm] 104 Blood Pressure Position [Left Arm] Pulse Oximetry 95 96 93 Oxygen Delivery Method Room Air Room Air Room Air Oxygen Flow Rate Sepsis Recent Fever Within 48 Hours No Sepsis New/Unexplained Change in Mental Status N/A Sepsis Action Taken by Nursing No Action Required Oxygen Flow Rate - Titration Pulse Oximetry Post Tiitration 05/05/21 12:30 05/05/21 12:49 05/05/21 13:00 Temperature Temperature Source Pulse Rate 105 H 105 H Pulse Rate [Apical] Pulse Rate from SpO2 Sensor 105 H 103 H Pulse Rhythm [Apical] Pulse Strength [Apical] Respiratory Rate 29 H 29 H Respiratory Effort / Characteristics Respiratory Depth Respiratory Pattern Blood Pressure 117/79 119/78 Blood Pressure [Left Arm] Blood Pressure Mean 91 91 Blood Pressure Mean [Left Arm] Blood Pressure Position [Left Arm] Pulse Oximetry 92 88 L 96 Oxygen Delivery Method Room Air Nasal Cannula Nasal Cannula Oxygen Flow Rate 2 Sepsis Recent Fever Within 48 Hours Sepsis New/Unexplained Change in Mental Status Sepsis Action Taken by Nursing Oxygen Flow Rate - Titration 2 Pulse Oximetry Post Tiitration 94 01/18/22 13:30 05/05/21 14:00 05/05/21 14:30 Temperature Temperature Source Pulse Rate 101 H 100 H 92 H Pulse Rate [Apical] Pulse Rate from SpO2 Sensor 100 H 100 H 92 H Pulse Rhythm [Apical] Pulse Strength [Apical] Respiratory Rate 28 H 22 27 H Respiratory Effort / Characteristics Respiratory Depth Respiratory Pattern Blood Pressure 115/78 111/81 112/84 Blood Pressure [Left Arm] Blood Pressure Mean 90 91 93 Blood Pressure Mean [Left Arm] Blood Pressure Position [Left Arm] Pulse Oximetry 96 97 96 Oxygen Delivery Method Nasal Cannula Nasal Cannula Nasal Cannula Oxygen Flow Rate 2 2 2 Sepsis Recent Fever Within 48 Hours Sepsis New/Unexplained Change in Mental Status Sepsis Action Taken by Nursing Oxygen Flow Rate - Titration Pulse Oximetry Post Tiitration 05/05/21 15:00 Temperature Temperature Source Pulse Rate Pulse Rate [Apical] 102 H Pulse Rate from SpO2 Sensor Pulse Rhythm [Apical] Regular Pulse Strength [Apical] Normal Respiratory Rate 20 Respiratory Effort / Characteristics Non-Labored Respiratory Depth Normal Respiratory Pattern Regular Blood Pressure Blood Pressure [Left Arm] 135/78 Blood Pressure Mean Blood Pressure Mean [Left Arm] 97 Blood Pressure Position [Left Arm] Lying Pulse Oximetry 93 Oxygen Delivery Method Nasal Cannula Oxygen Flow Rate 2 Sepsis Recent Fever Within 48 Hours Sepsis New/Unexplained Change in Mental Status Sepsis Action Taken by Nursing Oxygen Flow Rate - Titration Pulse Oximetry Post Tiitration Laboratory Data Result diagrams: 05/05/21 11:08 05/05/21 11:08 Lab Results 05/05/21 05/05/21 05/05/21 Range/Units 11:08 11:08 11:08 WBC 2.80 L (4.8-10.8) K/uL RBC 4.56 (4.2-5.4) M/uL Hgb 14.1 (12.0-16.0) g/dL Hct 42.8 (37-47) % MCV 93.9 (80-100) fL MCH 30.9 (25-34) pg MCHC 32.9 (32-36) g/dL RDW Std Deviation 45.6 (36.4-46.3) fL RDW Coeff of [place] 13.1 (11.5-14.5) % Plt Count 185 (130-400) K/uL MPV 9.1 (7.4-10.4) fL Immature Gran % (Auto) 0.4 % Neut % (Auto) 57.1 % Lymph % (Auto) 27.1 % Gaines % (Auto) 15.0 % Eos % (Auto) 0.4 % Baso % (Auto) 0.0 % Neut # (Auto) 1.60 (1.4-6.5) K/uL Lymph # (Auto) 0.76 L (1.2-3.4) K/uL Gaines # (Auto) 0.42 (0.11-0.59) K/uL Eos # (Auto) 0.01 (0-0.5) K/uL Baso # (Auto) 0.00 (0-0.2) K/uL Immature Gran # (Auto) 0.01 (0.00-0.02) K/uL Sodium 138 (136-145) mmol/L Potassium 3.6 (3.5-5.1) mmol/L Chloride 105 (98-107) mmol/L Carbon Dioxide 26 (21-32) mmol/L Anion Gap 7 (3-11) BUN 7 (6-23) mg/dl Creatinine 0.60 (0.6-1.2) mg/dl Est Cr Clr Drug Dosing 169.2 ml/min Est GFR ( Amer) 143.8 ml/min Est GFR (Non-Af Amer) 124.0 ml/min BUN/Creatinine Ratio 11.7 (10-20) Glucose 91 (70-99(Fasting)) mg/dl Calcium 8.7 (8.5-10.1) mg/dl Total Bilirubin 0.5 (0.2-1.0) mg/dl AST 51 H (13-39) U/L ALT 61 H (7-52) U/L Alkaline Phosphatase 57 (34-104) U/L Troponin I < 0.03 (0-0.04) ng/ml C-Reactive Protein 5.81 H (0-0.5) mg/dl Total Protein 7.4 (6.0-8.3) gm/dl Albumin 3.9 (3.4-5.0) gm/dl Globulin 3.5 (2.5-4.0) gm/dl Albumin/Globulin Ratio 1.1 (0.9-2) Administered Medications Discontinued Medications Acetaminophen (Acetaminophen 500 Mg Tab) 1,000 mg PO NOW STA Stop: 05/05/21 10:31 Last Admin: 05/05/21 11:09 Dose: 1,000 mg Documented by: [id number] Albuterol (Albut/Ipratrop 3mg/0.5mg Neb 3 Ml Vial) 3 ml NEB NOW STA; Protocol Stop: 05/05/21 10:31 Last Admin: 05/05/21 11:09 Dose: 3 ml Documented by: [id number] Dexamethasone (Dexamethasone Sod Inj 4 Mg/Ml Vial) Confirm Administered Dose 8 mg .ROUTE .STK-MED ONE Stop: 05/05/21 13:22 Last Admin: 05/05/21 13:25 Dose: 6 mg Documented by: [id number] Dexamethasone 6 mg/ Syringe 1.5 mls @ 1 mls/min IV ONE ONE Stop: 05/05/21 12:55 Last Admin: 05/05/21 13:26 Dose: Not Given Documented by: [id number] Sodium Chloride (Nss 1000ml) 1,000 mls @ 999 mls/hr IV .Q1H1M ALICIA Stop: 05/05/21 13:55 Last Infusion: 05/05/21 14:26 Dose: 0 mls/hr Documented by: [id number] Admin: 05/05/21 13:25 Dose: 999 mls/hr Documented by: [id number] Ioversol (Optiray 320 125ml) 105 ml IV ONCE ONE Stop: 05/05/21 12:05 Last Admin: 05/05/21 12:04 Dose: 105 ml Documented by: [id number] Imaging Data Radiologist's Impression: Chest CTA 05/05/21 10:30 CT angio chest PE protocol CLINICAL HISTORY: PE TECHNIQUE: Multidetector row helical CT of the chest was performed. Coronal and sagittal reformations were obtained. Coronal and sagittal MIPS were obtained from the axial data set and were submitted for review. Automated dose lowering techniques and/or adjustment according to patient size were utilized for this exam. Comparison: Comparison is made to chest one view 05/05/2019 FINDINGS: Lungs and pleura: Airspace opacities are seen. Heart and pericardium: There is cardiomegaly without evidence of pericardial effusion. Vessels: No evidence of pulmonary embolism. Pulmonary trunk measures 32 mm in diameter. Mediastinum and kat: Subcentimeter lymph nodes are seen. Chest wall and lower neck: Unremarkable. Abdomen: Unremarkable. Bones: Unremarkable. IMPRESSION: 1. No evidence of pulmonary embolism. 2. Multifocal airspace opacities compatible with history of pneumonia. ACT 112: Negative or not required by law. Electronically signed by: Cody Jimenez M.D. 05/05/2021 12:28 PM Chest X-Ray 05/05/21 10:30 XR chest 1V portable CLINICAL HISTORY: Chest pain, shortness of breath and tachycardia. COMPARISON STUDY: Chest radiograph December 15, 2015. FINDINGS: Lung volumes are diminished. No pneumothorax or pleural effusion is noted. Moderate bilateral airspace opacities are present. Cardiac size is accentuated on this examination. IMPRESSION: Low lung volumes. Moderate bilateral airspace opacities which favor an infectious process. Radiographic follow-up to ensure resolution is recommended. ACT 112: Negative or not required by law. Electronically signed by: Talha Reyes M.D. 05/05/2021 11:50 AM Discharge Plan Visit Data Chief Complaint: Shortness of Breath/Dyspnea Stated Complaint: COVID+ SINCE TUESDAY, CAN NOT BREATH, HARD TO TALK ED Provider: Haroldo Pardo ED Midlevel Provider: Elsi Roldan Discharge Problem: Pneumonia due to COVID-19 virus, Hypoxia, Tachycardia, Tachypnea, Chest pain, Shortness of breath Patient Disposition: Being Evaluated by Hospitalist Prescriptions Prescriptions: No Action multivitamin tablet 1 tab PO QAM RF: 0 ibuprofen 800 mg tablet 800 mg PO Q8H PRN (Reason: pain) Qty: 30 RF: 0 desogestrel-ethinyl estradiol [Isibloom] 0.15-0.03 mg tablet 1 tab PO HS RF: 0 Referrals Referrals: Karuna Salamanca DO [Primary Care Provider] -
[2021-05-05 11:25] LABS: Eosinophils # (auto) 0.01 K/uL (0-0.5); Eosinophils % (auto) 0.4 %; Hematocrit (blood only) 42.8 % (37-47); Hemoglobin 14.1 g/dL (12.0-16.0); Immature Granulocytes # (auto) 0.01 K/uL (0.00-0.02); Immature Granulocytes % (auto) 0.4 %; Lymphocytes # (auto) 0.76 K/uL (1.2-3.4); Lymphocytes % (auto) 27.1 %; Mean Corpuscular Hemoglobin 30.9 pg (25-34); Mean Corpuscular Hgb Conc 32.9 g/dL (32-36); Mean Corpuscular Volume 93.9 fL (80-100); Mean Platelet Volume 9.1 fL (7.4-10.4); Monocytes # (auto) 0.42 K/uL (0.11-0.59); Neutrophils % (auto) 57.1 %; Platelet Count 185 K/uL (130-400); RDW Coefficient of Variation 13.1 % (11.5-14.5); RDW Standard Deviation 45.6 fL (36.4-46.3); Red Blood Count 4.56 M/uL (4.2-5.4)
[2021-05-05 11:48] LABS: Alanine Aminotransferase 61 U/L (7-52); Albumin Globulin Ratio 1.1 (0.9-2); Albumin Level 3.9 gm/dl (3.4-5.0); Alkaline Phosphatase 57 U/L (34-104); Anion Gap 7 (3-11); Aspartate Aminotransferase 51 U/L (13-39); BUN Creatinine Ratio 11.7 (10-20); Bilirubin,Total 0.5 mg/dl (0.2-1.0); Blood Urea Nitrogen 7 mg/dl (6-23); Calcium 8.7 mg/dl (8.5-10.1); Carbon Dioxide 26 mmol/L (21-32); Chloride 105 mmol/L (98-107); Creatinine Clr Calc Pharmacy 169.2 ml/min; Est GFR (African American) 143.8 ml/min; Globulin 3.5 gm/dl (2.5-4.0); Glucose 91 mg/dl (70-99(Fasting)); Potassium 3.6 mmol/L (3.5-5.1); Sodium 138 mmol/L (136-145); Total Protein 7.4 gm/dl (6.0-8.3)
[2021-05-05 11:49] LABS: Troponin I < 0.03 ng/ml (0-0.04)
--- NOTE | 2021-05-05 11:51 | XRay Report ---
XR chest 1V portable CLINICAL HISTORY: Chest pain, shortness of breath and tachycardia. COMPARISON STUDY: Chest radiograph December 15, 2015. FINDINGS: Lung volumes are diminished. No pneumothorax or pleural effusion is noted. Moderate bilater al airspace opacities are present. Cardiac size is accentuated on this examination. IMPRESSION: Low lung volumes. Moderate bilateral airspace opacities which favor an infectious proces s. Radiographic follow-up to ensure resolution is recommended. ACT 112: Negative or not required by law. Electronically signed by: Talha Reyes M.D. 05/05/2021 11:50 AM
[2021-05-05] MEDS ORDERED: OPTIRAY 320 125ml IV ONE (12:04)
--- NOTE | 2021-05-05 12:29 | CT Scan Report ---
CT angio chest PE protocol CLINICAL HISTORY: PE TECHNIQUE: Multidetector row helical CT of the chest was performed. Coronal and sagittal reformations were obtained. Coronal and sagittal MIPS were obtained from the axial data set and were submitted fo r review. Automated dose lowering techniques and/or adjustment according to patient size were utiliz ed for this exam. Comparison: Comparison is made to chest one view 05/05/2019 FINDINGS: Lungs and pleura: Airspace opacities are seen. Heart and pericardium: There is cardiomegaly without evidence of pericardial effusion. Vessels: No evidence of pulmonary embolism. Pulmonary trunk measures 32 mm in diameter. Mediastinum and kat: Subcentimeter lymph nodes are seen. Chest wall and lower neck: Unremarkable. Abdomen: Unremarkable. Bones: Unremarkable. IMPRESSION: 1. No evidence of pulmonary embolism. 2. Multifocal airspace opacities compatible with history of pneumonia. ACT 112: Negative or not required by law. Electronically signed by: Cody Jimenez M.D. 05/05/2021 12:28 PM
[2021-05-05] MEDS ORDERED: dexAMETHasone 6 MG in SYRINGE 0 ML IV ONE (12:54)
[2021-05-05] MEDS ORDERED: SODIUM CHLORIDE 0.9% 1000ML 1,000 ML IV SCH (12:55)
[2021-05-05] MEDS ORDERED: DEXAMETHASONE SOD INJ 4 MG/ML VIAL ONE (13:21)
[2021-05-05] MEDS ORDERED: REMDESIVIR 200 MG in SODIUM CHLORIDE 0.9% 210 ML IV STA (15:03)
--- NOTE | 2021-05-05 15:12 | History & Physical Report ---
Date of Service May 05, 2021 Assessment & Plan (1) Pneumonia due to COVID-19 virus: Plan: 26 yo F Hx anxiety admitted for acute hypoxic respiratory failure secondary to COVID 19 illness and suspected superimposed bacterial pneumonia. Acute hypoxic respiratory failure, COVID-19, community acquired pneumonia: Presented with 3 days of URI symptoms and worsening dyspnea. Labwork notable for leukopenia and mildly elevated LFTs. CTA Chest with patchy diffuse consolidations suggestive of COVID-19 pneumonia, but also with more focal area of consolidation in RLL. No history suggestive of aspiration event, vomiting. Unasyn initiated, MRSA nares pending. Dexamethasone 6mg IV daily started in ER; will continue x10 days total. Remdesivir initiated x5 days. Code Status: FULL CODE FEN: Regular diet DVT ppx: Lovenox 40mg BID given COVID-19 diagnosis Dispo: Med/Tele (2) Community acquired pneumonia: (3) Acute respiratory failure with hypoxia: History of Present Illness Chief Complaint: dyspnea Primary Care Provider: Karuna Salamanca DO 26 yo F Hx anxiety presented to the ER for worsening dyspnea specifically on exertion. She was tested for COVID-19 on 05/01 and was informed she was positive on 05/02. She developed symptoms on 05/02 including cough, rhinorrhea. In the ER she was hypoxic to 88% on room air, improved with 2LNC. She was also mildly tachycardic. Due to Hx COCP use and recent COVID 19 infection with tachycardia and hypoxia a CTA Chest was performed which showed no evidence of PE but did rev eal bilateral multifocal pneumonia consistent with COVID pneumonia. She was given IV steroids and due to hypoxia hospitalist service was consulted for admission. Allergies Allergy/AdvReac Type Severity Reaction Status Date / Time nickel Allergy Mild Rash Verified 05/05/21 12:16 Home Medications Medication Instructions Recorded Confirmed Type multivitamin 1 tab PO QAM 09/27/18 05/05/21 History ibuprofen 800 mg tablet 800 mg PO Q8H PRN #30 tab 04/20/21 05/05/21 Rx desogestrel 0.15 mg-ethinyl 1 tab PO HS 05/05/21 05/05/21 History estradiol 0.03 mg tablet (Isibloom) Past Med/Surg History Medical History Anxiety Carpal tunnel syndrome of right wrist Contraceptive use Verena-Danlos syndrome Elevated AST (SGOT) Family history of reaction to anesthesia GRANDMOTHER - N/V, SLOW TO WAKE UP History of anemia History of anemia History of chlamydia History of pneumonia History of varicella HLD (hyperlipidemia) Migraine headache Vitamin D deficiency Surgical History H/O hand surgery R carpal tunnel release S/P tooth extraction [place] teeth removed Family History Sister Anxiety Thyroid cancer Factor V Leiden mutation Family/Other Anemia Multiple gestation Diabetes Endometriosis Gestational diabetes Hypercholesteremia Hypertension Osteoporosis Ovarian cyst Grandfather (Maternal) Anemia Factor V Leiden mutation Mother Lung cancer Breast cancer Grandmother (Maternal) Breast cancer Aunt Breast cancer Family/Other Breast cancer Denies family history of Colon cancer Ovarian cancer Prostate cancer Myocardial infarction Social History Smoking Status: Never smoker Second Hand Exposure: No; Hx Alcohol Use: Yes Alcohol Intake Frequency: Monthly or Less Hx Substance Use: No Preferred Language: Ivorian Communication Ability: Effective Visual Impairment: No Limitations Hearing Ability: Normal Bicycle Courier Required: No Beliefs That Will Affect Care: None marital status: Single Current Living Situation: Significant Other Current Living Situation Comment: FIANCE AND SON current occupational status: employed current occupation: Dental office Feels Safe at Home: Yes Dental Care, Regularly: Yes Physical Activity Frequency: Does not Exercise Seatbelt Use: always Sunscreen Use: No Assistive Devices: Contacts and Glasses Review of Systems Review of Systems: All systems reviewed & are unremarkable except as noted in HPI & below Constitutional: + malaise; no fever and no chills Respiratory: + cough and + dyspnea Cardiovascular: no chest pain, no palpitations and no edema Gastrointestinal: no abdominal pain, no constipation and no diarrhea/loose stools Genitourinary: no dysuria and no hematuria Physical Exam Constitutional: WD/WN, vitals as above Eyes: PERRL, conjunctivae normal, anicteric sclerae ENMT: external ear and nose normal, oropharynx normal Neck: normal visual inspection Respiratory: normal respiratory effort Lungs clear to auscultation save for decreased breath sounds bibasilar Cardiovascular: RRR, no murmur, no edema Gastrointestinal (Abdomen): normal bowel sounds, soft, nontender, no hepatospl enomegaly Musculoskeletal: no cyanosis or clubbing, extremities motor strength 5/5 Skin: no rashes, warm and dry Neurologic: AAOx3, normal speech. Bilateral UE, LE, and face without sensory or motor deficits. No tremor. Psychiatric: A+Ox3, euthymic affect Results & Data Results & Data ([facility]) Vital Signs (Past 12 Hours) Vital Signs Temp Pulse Pulse Resp BP BP Pulse Ox 05/05/21 14:30 92 H 27 H 112/84 96 05/05/21 14:00 100 H 22 111/81 97 05/05/21 13:30 101 H 28 H 115/78 96 05/05/21 13:00 105 H 29 H 119/78 96 05/05/21 12:49 88 L 05/05/21 12:30 105 H 29 H 117/79 92 05/05/21 11:30 114 H 27 H 130/79 93 05/05/21 11:01 103 H 24 125/94 96 05/05/21 10:09 37.5 C 114 H 20 129/93 95 Supervising Physician Co-Signing Physician Notes I personally examined the patient and verified all gomez points of history and exam, discussed case, and agree with decision making with Dr Will stewart, chest burning. ~3-4 days into illness. not vaccinated. dental hygeinist vitals noted nad heent nc at mmm lungs quiet bibasilar no r/r/w mid/upper lungs surprisingly clear. no conversational dyspnea CT reviewed, also reviewed w pt COVID-pneumoniaand right lower lung dense consolidation concerning for secondary bacterial overgrowth pneumonia. Early enough in the course of illness she may get some benefit from remdesivirwe will utilize. Utilize Decadron. Unasyn for what appears to be secondary bacterial overgrowth pneumonia. Supportive care. Encouraged proning. DVT prophylaxisLovenox Otherwise as above Resident Activity Tracking Resident Involvement: Resident Care Provided Care Provided: Adult Hospital Medicine
--- NOTE | 2021-05-05 16:27 | Billing Data ---
Date of Service May 05, 2021 Coding Level of Care Code 68498 Initial Inpt Care Lvl 3
[2021-05-05] MEDS ORDERED: POLYETHYLENE (MIRALAX) 17 GM PACK PO PRN (16:52)
[2021-05-05] MEDS ORDERED: ACETAMINOPHEN 325 MG TAB PO ONE (17:35)
[2021-05-05] MEDS: AMPICILLIN/SULBACTAM SOD 3,000 MG in 0.9 % SODIUM CHLORIDE 100 ML IV SCH ×2 (18:14→23:45)
[2021-05-05] MEDS: ENOXAPARIN INJ 40 MG/0.4 ML SYR SQ SCH (20:19)
[2021-05-06] MEDS: AMPICILLIN/SULBACTAM SOD 3,000 MG in 0.9 % SODIUM CHLORIDE 100 ML IV SCH ×4 (05:55→23:02)
--- NOTE | 2021-05-06 05:57 | Electrocardiogram Report ---
Test Reason : Blood Pressure : / mmHG Vent. Rate : 103 BPM Atrial Rate : 103 BPM P-R Int : 128 ms QRS Dur : 088 ms QT Int : 328 ms P-R-T Axes : 016 -04 021 degrees QTc Int : 429 ms Sinus tachycardia No previous ECGs available Confirmed by Eric Ramirez ([id number]) on 05/06/2021 5:56:34 AM Referred By: Confirmed By:Eric Ramirez
[2021-05-06 06:19] LABS: Basophils # (auto) 0.01 K/uL (0-0.2); Basophils % (auto) 0.3 %; Hematocrit (blood only) 43.9 % (37-47); Hemoglobin 14.8 g/dL (12.0-16.0); Immature Granulocytes # (auto) 0.02 K/uL (0.00-0.02); Immature Granulocytes % (auto) 0.6 %; Lymphocytes # (auto) 1.38 K/uL (1.2-3.4); Lymphocytes % (auto) 42.6 %; Mean Corpuscular Hemoglobin 31.6 pg (25-34); Mean Corpuscular Hgb Conc 33.7 g/dL (32-36); Mean Corpuscular Volume 93.6 fL (80-100); Mean Platelet Volume 9.2 fL (7.4-10.4); Monocytes # (auto) 0.54 K/uL (0.11-0.59); Monocytes % (auto) 16.7 %; Neutrophils # (auto) 1.29 K/uL (1.4-6.5); Neutrophils % (auto) 39.8 %; Platelet Count 239 K/uL (130-400); RDW Coefficient of Variation 13.1 % (11.5-14.5); RDW Standard Deviation 44.7 fL (36.4-46.3); Red Blood Count 4.69 M/uL (4.2-5.4); White Blood Count 3.24 K/uL (4.8-10.8)
[2021-05-06 06:55] LABS: Alanine Aminotransferase 54 U/L (7-52); Albumin Globulin Ratio 1.1 (0.9-2); Albumin Level 3.9 gm/dl (3.4-5.0); Alkaline Phosphatase 56 U/L (34-104); Anion Gap 8 (3-11); Aspartate Aminotransferase 41 U/L (13-39); BUN Creatinine Ratio 15.7 (10-20); Bilirubin,Total 0.5 mg/dl (0.2-1.0); Blood Urea Nitrogen 8 mg/dl (6-23); Calcium 8.7 mg/dl (8.5-10.1); Carbon Dioxide 25 mmol/L (21-32); Chloride 108 mmol/L (98-107); Creatinine Clr Calc Pharmacy 198.4 ml/min; Est GFR (African American) > 150.0 ml/min; Est GFR (Non-African American) 130.9 ml/min; Globulin 3.7 gm/dl (2.5-4.0); Glucose 98 mg/dl (70-99(Fasting)); Sodium 141 mmol/L (136-145); Total Protein 7.6 gm/dl (6.0-8.3)
[2021-05-06] MEDS: ENOXAPARIN INJ 40 MG/0.4 ML SYR SQ SCH ×2 (09:53→20:03)
[2021-05-06] MEDS: dexAMETHasone 6 MG in SYRINGE 0 ML IV SCH (09:53)
--- NOTE | 2021-05-06 10:09 | Hospitalist Progress Note ---
Date of Service May 06, 2021 Assessment & Plan (1) Pneumonia due to COVID-19 virus: Plan: 26 yo F Hx anxiety admitted for acute hypoxic respiratory failure secondary to COVID 19 illness and suspected superimposed bacterial pneumonia. Acute hypoxic respiratory failure, COVID-19, community acquired pneumonia: Presented with 3 days of URI symptoms and worsening dyspnea. Labwork notable for leukopenia and mildly elevated LFTs which is stable. CTA Chest with patchy diffuse consolidations suggestive of COVID-19 pneumonia, but also with more focal area of consolidation in RLL. No history suggestive of aspiration event, vomiting. Unasyn initiated, will continue. CRP increased 5.81 -> 8.42 today. Dexamethasone 6mg IV daily started in ER; will continue x10 days total. Remdesivir initiated 05/05, to complete 5 days of treatment. Initiate baricitinib if within 72 hours of admission and requiring HFNC. CRP meets criteria for initiation. Lasix 20mg IV x1 given for fluid management. Supplemental oxygen as needed for O2 saturation <92%. Will continue to trend CRP, CBC, CMP daily. Code Status: FULL CODE FEN: Regular diet DVT ppx: Lovenox 40mg BID given COVID-19 diagnosis Dispo: Med/Tele (2) Community acquired pneumonia: (3) Acute respiratory failure with hypoxia: Admission and Anticipated Discharge Date Admission Date: May 05, 2021 Supervising Physician Co-Signing Physician Notes I personally examined the patient and verified all gomez points of history and exam, discussed case, and agree with decision making with Dr Solis Feels a little more short of breath today than yesterday, more dyspnea on exertion and with conversation. However, feels about the same this afternoon when I see her as when she was seen by Dr. Mercedes this morning. vitals noted nad heent nc at mmm lungs quiet bibasilar no r/r/w mid/upper lungs surprisingly clearfairly similar to yesterday although somewhat worse effort. CT reviewed, also reviewed w pt COVID-pneumoniaand right lower lung dense consolidation concerning for secondary bacterial overgrowth pneumonia. Early enough in the course of illness she may get some benefit from remdesivircontinue. Continue Decadron. Continue Unasyn for what appears to be secondary bacterial overgrowth pneumonia. Supportive care. Encourage proning. Continue to follow closely. Gave trial to a dose of Lasix, no clear clinical improvement, continue to follow day to day in this regard DVT prophylaxisLovenox 40 bid. if hypoxia worsens markedly low threshold to rescan for PE Otherwise as above Subjective Overnight patient reports having some increase in dyspnea with activity as small as moving into and out of bed, therefore her oxygen was turned up to 4LNC. She is currently saturating at 95% on 4LNC. Her CRP today is increased as compared to yesterday. She is tolerating the IV steroids and remdesivir without adverse symptoms. Review of Systems Review of Systems: All systems reviewed & are unremarkable except as noted in HPI & below Constitutional: + malaise; no fever and no chills Respiratory: + cough and + dyspnea Cardiovascular: no chest pain, no palpitations and no edema Gastrointestinal: no abdominal pain, no constipation and no diarrhea/loose stools Genitourinary: no dysuria and no hematuria Physical Exam Constitutional: WD/WN, vitals as above Respiratory: normal respiratory effort Lungs clear to auscultation save for decreased bibasilar breath sounds No wheezes or rhonchi Cardiovascular: RRR, no murmur, no edema Gastrointestinal (Abdomen): normal bowel sounds, soft, nontender, no hepatosplenomegaly Skin: no rashes, warm and dry Psychiatric: A+Ox3, euthymic affect Results & Data Results & Data ([facility]) Vital Signs (Past 12 Hours) Vital Signs Temp Pulse Pulse Resp BP Pulse Ox 05/06/21 08:00 36.9 C 78 18 125/76 95 05/06/21 04:27 37 C 83 22 107/65 94 05/06/21 04:00 78 25 H 94 05/05/21 23:43 36.8 C 86 20 117/69 94 Resident Activity Tracking Resident Involvement: Resident Care Provided Care Provided: Adult Hospital Medicine
[2021-05-06] MEDS: ACETAMINOPHEN 325 MG TAB PO PRN ×2 (11:31→20:02)
[2021-05-06] MEDS ORDERED: FUROSEMIDE INJ 20 MG/2 ML VIAL IV ONE (13:15)
--- NOTE | 2021-05-06 17:50 | Billing Data ---
Date of Service May 06, 2021 Coding Level of Care Code 53222 Subseq Hosp Care Lvl 3
--- NOTE | 2021-05-06 17:51 | Billing Data ---
Date of Service May 06, 2021 Coding Level of Care Code 34704 Subseq Hosp Care Lvl 3
[2021-05-06] MEDS: REMDESIVIR 100 MG in SODIUM CHLORIDE 0.9% 230 ML IV SCH (20:02)
[2021-05-06] MEDS ORDERED: SODIUM CHLORIDE 0.9% 10ML FLUSH IV SCH (21:00)
[2021-05-07] MEDS: AMPICILLIN/SULBACTAM SOD 3,000 MG in 0.9 % SODIUM CHLORIDE 100 ML IV SCH ×3 (05:28→18:21)
[2021-05-07 07:16] LABS: Basophils # (auto) 0.01 K/uL (0-0.2); Basophils % (auto) 0.2 %; Hematocrit (blood only) 40.9 % (37-47); Hemoglobin 13.3 g/dL (12.0-16.0); Immature Granulocytes # (auto) 0.02 K/uL (0.00-0.02); Immature Granulocytes % (auto) 0.4 %; Lymphocytes # (auto) 1.28 K/uL (1.2-3.4); Mean Corpuscular Hemoglobin 30.6 pg (25-34); Mean Corpuscular Hgb Conc 32.5 g/dL (32-36); Mean Corpuscular Volume 94.2 fL (80-100); Mean Platelet Volume 9.2 fL (7.4-10.4); Monocytes # (auto) 0.85 K/uL (0.11-0.59); Monocytes % (auto) 16.6 %; Neutrophils # (auto) 2.96 K/uL (1.4-6.5); Neutrophils % (auto) 57.8 %; Platelet Count 301 K/uL (130-400); RDW Standard Deviation 45.3 fL (36.4-46.3); Red Blood Count 4.34 M/uL (4.2-5.4); White Blood Count 5.12 K/uL (4.8-10.8)
[2021-05-07] MEDS: ENOXAPARIN INJ 40 MG/0.4 ML SYR SQ SCH ×2 (07:31→19:51)
[2021-05-07] MEDS: dexAMETHasone 6 MG in SYRINGE 0 ML IV SCH (07:31)
[2021-05-07 07:38] LABS: Alanine Aminotransferase 45 U/L (7-52); Albumin Globulin Ratio 1.1 (0.9-2); Albumin Level 3.5 gm/dl (3.4-5.0); Alkaline Phosphatase 45 U/L (34-104); Anion Gap 8 (3-11); Aspartate Aminotransferase 29 U/L (13-39); BUN Creatinine Ratio 27.9 (10-20); Bilirubin,Total 0.4 mg/dl (0.2-1.0); Blood Urea Nitrogen 12 mg/dl (6-23); C Reactive Protein 3.51 mg/dl (0-0.5); Calcium 8.5 mg/dl (8.5-10.1); Carbon Dioxide 25 mmol/L (21-32); Chloride 109 mmol/L (98-107); Creatinine Clr Calc Pharmacy 230.2 ml/min; Est GFR (African American) > 150.0 ml/min; Est GFR (Non-African American) 138.4 ml/min; Globulin 3.2 gm/dl (2.5-4.0); Glucose 94 mg/dl (70-99(Fasting)); Potassium 3.6 mmol/L (3.5-5.1); Sodium 142 mmol/L (136-145); Total Protein 6.7 gm/dl (6.0-8.3)
[2021-05-07] MEDS: ONDANSETRON INJ 2 MG/ML 2 ML VIAL IV PRN (07:47)
--- NOTE | 2021-05-07 08:01 | Hospitalist Progress Note ---
Date of Service May 07, 2021 Assessment & Plan (1) Pneumonia due to COVID-19 virus: Plan: 26 yo F Hx anxiety admitted for acute hypoxic respiratory failure secondary to COVID 19 illness and suspected superimposed bacterial pneumonia. Acute hypoxic respiratory failure, COVID-19, community acquired pneumonia: Presented with 3 days of URI symptoms and worsening dyspnea. Labwork notable for leukopenia and mildly elevated LFTs on admission, resolved at this time. CTA Chest with patchy diffuse consolidations suggestive of COVID-19 pneumonia, but also with more focal area of consolidation in RLL. Unasyn initiated, will continue. With worsening of respiratory status today, differentials include worsening of COVID-19 pneumonia, mucus plugging, pulmonary edema, PE. Incentive spirometer and flutter valve ordered for mucus plugging. Patient does not qualify for baricitinib due to improving CRP and not requiring HFNC. Transaminitis and leukopenia from COVID-19 resolved on labs this AM. Xopenex neb x1 ordered to increase air movement in the lungs. Lasix 20mg IV x1 given for fluid management on 05/06 with minimal to no improvement in breathing. Will defer further diuretics today given relatively soft BPs and no signs of fluid overload. Low likelihood of PE though not impossible; patient currently on Lovenox BID. Low threshold to re-CTA Chest if starts to require 6LNC at rest. Dexamethasone 6mg IV daily started on admission, will continue x10 days total. Remdesivir initiated 05/05, to complete 5 days of treatment. Supplemental oxygen as needed for O2 saturation <92%. Will continue to trend CRP, CBC, CMP daily. Code Status: FULL CODE FEN: Regular diet DVT ppx: Lovenox 40mg BID given COVID-19 diagnosis Dispo: Med/Tele (2) Community acquired pneumonia: (3) Acute respiratory failure with hypoxia: Admission and Anticipated Discharge Date Admission Date: May 05, 2021 Supervising Physician Co-Signing Physician Notes I personally examined the patient and verified all gomez points of history and exam, discussed case, and agree with decision making with Dr Will ardon sob this AM than yesterday, espcially COCHRAN/desaturation w exertion - although not worse this afternoon when i see her compared to this AM when seen by dr jordan vitals noted nad heent nc at mmm lungs quiet bibasilar no r/r/w mid/upper lungs surprisingly clearbetter effort than yesterday CT report reviewed, d/w pt (films not yet in EMR when i saw her, although radiology report was) COVID-pneumoniaand right lower lung dense consolidation concerning for secondary bacterial overgrowth pneumonia. worsening fortunately fairly slowly progressive and relatively mild in comparison to bad/oakley decompensations that have come with this kind of situation. CRP improving, MRSA nares negative - no indication that she would benefit from a change in abx coverage for presumed bacterial overgrowth. no PE, no pulmonary edema (and did not feel better after lasix yesterday, BP running low enough to feel risk/benefit of further empiric diuresis would be more harm than benefit at current point). suspect worsening is just progression of viral and immune-mediated illness brought on by initial insult of covid pneumonia. continue remdesivir, steroids. does not meed criteria for baricitinib/tocilizumab. continue supportive care DVT prophylaxisLovenox 40 bid. Otherwise as above Subjective Did require titration of oxygen overnight, increased to 6LNC due to hypoxia to 89% on 3LNC, and desaturation events after going to the bathroom. On my interview she was saturating in the low 90s on 4LNC, and feeling more comfortable than she had been when ambulating to the bathroom. Otherwise without fevers, chest pains. Did complain of some nausea this morning withotu emesis. Nausea was aroudn when her oxygen saturation dropped and she became very nervous about having difficulty breathing. Review of Systems Review of Systems: All systems reviewed & are unremarkable except as noted in HPI & below Constitutional: + malaise; no fever and no chills Respiratory: + cough and + dyspnea Cardiovascular: no chest pain, no palpitations and no edema Gastrointestinal: + nausea; no abdominal pain, no constipation and no diarrhea/loose stools Genitourinary: no dysuria and no hematuria Physical Exam Constitutional: WD/WN, vitals as above Respiratory: normal respiratory effort Decreased breath sounds at bilateral bases, and restricted air movement throughout No wheezes or rhonchi Cardiovascular: RRR, no murmur, no edema Gastrointestinal (Abdomen): normal bowel sounds, soft, nontender, no hepatosplenomegaly Skin: no rashes, warm and dry Psychiatric: A+Ox3, euthymic affect Results & Data Results & Data ([facility]) Vital Signs (Past 12 Hours) Vital Signs Temp Pulse Pulse Resp BP Pulse Ox 05/07/21 06:49 89 L 05/07/21 03:58 86 L 05/07/21 03:54 37.2 C 91 H 20 98/66 L 90 05/07/21 01:00 94 05/06/21 23:38 96 05/06/21 22:43 36.9 C 95 H 20 106/68 92 05/06/21 22:18 80 Resident Activity Tracking Resident Involvement: Resident Care Provided Care Provided: Adult Hospital Medicine
[2021-05-07] MEDS ORDERED: LEVALBUTEROL HCL 0.63 MG/3 ML NEB NEB STA (08:28)
[2021-05-07 10:02] LABS: C-Reactive Protein High Sens. >10.0 mg/L
[2021-05-07] MEDS ORDERED: OPTIRAY 320 125ml IV ONE (12:20)
[2021-05-07] MEDS: ACETAMINOPHEN 325 MG TAB PO PRN ×2 (12:24→21:51)
--- NOTE | 2021-05-07 12:34 | CT Scan Report ---
CT ANGIOGRAPHY OF THE CHEST, PULMONARY EMBOLUS PROTOCOL CLINICAL HISTORY: Shortness of breath. Evaluate for pulmonary embolus. COMPARISON STUDY: Chest radiograph and chest CT May 05, 2021. TECHNIQUE: Following IV administration of 118 mL of Optiray, helical axial images of the chest were o btained utilizing the pulmonary embolus protocol. Maximal intensity projections and sagittal and cor onal reformats were viewed on an independent 3D workstation. IV contrast was administered without co mplication. Automated exposure control was utilized for the study. A dose lowering technique was ut ilized adhering to the principles of ALARA. FINDINGS: No pulmonary emboli are identified. There is no thoracic aortic dissection. Size of the he art is at the upper limits of normal. There is no pericardial effusion. Prominent right hilar lymph n odes are likely reactive. Central airways are patent. No pneumothorax or pleural effusion is noted. E xtensive bilateral airspace opacities have progressed since CT of May 05, 2021. This includes shiela ateral lower lobe consolidation. There is no cavitation. No pneumothorax or pleural effusion is prese nt. No acute fracture or suspicious lesion is identified within visualized portions of the bony thora x. IMPRESSION: 1. No pulmonary emboli identified. 2. Progression of extensive bilateral airspace opacities since CT of May 05, 2021. This is sugges tive of multifocal pneumonia. ACT 112: Negative or not required by law. Electronically signed by: Talha Reyes M.D. 05/07/2021 12:32 PM
--- NOTE | 2021-05-07 13:31 | Billing Data ---
Date of Service May 07, 2021 Coding Level of Care Code 26634 Subseq Hosp Care Lvl 3
[2021-05-07] MEDS ORDERED: LEVALBUTEROL HCL 0.63 MG/3 ML NEB NEB PRN (16:22)
[2021-05-07] MEDS ORDERED: SODIUM CHLORIDE 0.65% NA SOLN 45 ML (OCEAN) PRN (17:23)
[2021-05-07] MEDS ORDERED: FUROSEMIDE 20 MG TAB PO ONE (18:14)
[2021-05-07] MEDS: REMDESIVIR 100 MG in SODIUM CHLORIDE 0.9% 230 ML IV SCH (19:48)
[2021-05-08] MEDS: AMPICILLIN/SULBACTAM SOD 3,000 MG in 0.9 % SODIUM CHLORIDE 100 ML IV SCH ×5 (00:02→23:15)
[2021-05-08 06:56] LABS: Alanine Aminotransferase 67 U/L (7-52); Albumin Globulin Ratio 1.1 (0.9-2); Albumin Level 3.5 gm/dl (3.4-5.0); Alkaline Phosphatase 43 U/L (34-104); Anion Gap 7 (3-11); Aspartate Aminotransferase 40 U/L (13-39); BUN Creatinine Ratio 22.4 (10-20); Bilirubin,Total 0.4 mg/dl (0.2-1.0); Blood Urea Nitrogen 11 mg/dl (6-23); C Reactive Protein 2.08 mg/dl (0-0.5); Calcium 8.5 mg/dl (8.5-10.1); Carbon Dioxide 26 mmol/L (21-32); Chloride 107 mmol/L (98-107); Creatinine Clr Calc Pharmacy 203.1 ml/min; Est GFR (African American) > 150.0 ml/min; Est GFR (Non-African American) 132.6 ml/min; Globulin 3.1 gm/dl (2.5-4.0); Glucose 85 mg/dl (70-99(Fasting)); Potassium 4.1 mmol/L (3.5-5.1); Sodium 140 mmol/L (136-145); Total Protein 6.6 gm/dl (6.0-8.3)
[2021-05-08] MEDS: ENOXAPARIN INJ 40 MG/0.4 ML SYR SQ SCH ×2 (08:18→20:22)
[2021-05-08] MEDS: dexAMETHasone 6 MG in SYRINGE 0 ML IV SCH (08:18)
[2021-05-08] MEDS ORDERED: FUROSEMIDE INJ 20 MG/2 ML VIAL IV ONE (08:35)
[2021-05-08] MEDS ORDERED: COUGH DROP (SUGAR FREE) LOZ 24 LOZ/1 BOX BUCCAL STA (16:14)
--- NOTE | 2021-05-08 17:29 | Hospitalist Progress Note ---
Date of Service May 08, 2021 Assessment & Plan (1) Pneumonia due to COVID-19 virus: Plan: 26 yo F Hx anxiety admitted for acute hypoxic respiratory failure secondary to COVID 19 illness and suspected superimposed bacterial pneumonia. Acute hypoxic respiratory failure, COVID-19, community acquired pneumonia: Presented with 3 days of URI symptoms and worsening dyspnea. CTA Chest with patchy diffuse consolidations suggestive of COVID-19 pneumonia, but also with more focal area of consolidation in RLL. Unasyn initiated, will continue. (With worsening considered whether or not we would need to change antibiotic coveragebut with CRP trending down, and MRSA nares negative, it is highly unlikely that Unasyn resistant bacteria are at play for the worsening) Worsened over the course of the last [address] checkedonly progressive pneumonia type findingsgiven above, strongly suspect worsening of COVID-pneumonia/viral/inflammatory processbut does not meet criteria for baricitinib/tocilizumab. Blood pressure is allowing more margin for diuresiswe will resume/continue. Dexamethasone 6mg IV daily started on admission, will continue x10 days total. Remdesivir initiated 05/05, to complete 5 days of treatment. Supplemental oxygen as needed for O2 saturation <92%. Will continue to trend CRP, CBC, CMP daily. Code Status: FULL CODE FEN: Regular diet DVT ppx: Lovenox 40mg BID given COVID-19 diagnosis Dispo: Med/Tele (2) Community acquired pneumonia: (3) Acute respiratory failure with hypoxia: Admission and Anticipated Discharge Date Admission Date: May 05, 2021 Subjective Ongoing dyspnea and desaturation with exertion. Appears fatigued but feels reasonably okay at rest. Slept on her belly. Most recent dose of Lasix is causing significant urine output. Nursing notes no other problems. Review of Systems Review of Systems: All systems reviewed & are unremarkable except as noted in HPI & below Physical Exam Physical Exam: General she is awake and alert fatigued but no distress. HEENT normocephalic atraumatic mucous membranes moist. Lungs diminished air entry at the bases clear from mid lung [place] upvery similar to yesterday. No accessory muscle use. No conversational dyspnea. Neuro without focal deficits. Results & Data Results & Data ([facility]) Vital Signs (Past 12 Hours) Vital Signs Temp Pulse Pulse Resp BP Pulse Ox Pulse Ox 05/08/21 16:36 88 05/08/21 16:00 90 05/08/21 15:02 98.6 F 79 18 108/74 95 05/08/21 11:06 98.6 F 79 18 108/74 95 05/08/21 10:31 61 05/08/21 08:07 95 H 05/08/21 08:00 98.4 F 77 18 124/81 96 PG Care Time/CCT Total # of Minutes Spent Total Time Spent with Patient: Total time spent is greater than 50% in coordination of care (as documented) at patient's floor/unit and/or counseling patient: Coding Level of Care Code 50409 Subseq Hosp Care Lvl 3 Diagnoses Pneumonia due to COVID-19 virus U07.1; J12.82 Community acquired pneumonia J18.9 Acute respiratory failure with hypoxia J96.01
[2021-05-08] MEDS: REMDESIVIR 100 MG in SODIUM CHLORIDE 0.9% 230 ML IV SCH (20:16)
[2021-05-09 06:33] LABS: Basophils # (auto) 0.01 K/uL (0-0.2); Basophils % (auto) 0.2 %; Hematocrit (blood only) 45.3 % (37-47); Hemoglobin 14.8 g/dL (12.0-16.0); Immature Granulocytes % (auto) 1.6 %; Lymphocytes # (auto) 2.29 K/uL (1.2-3.4); Lymphocytes % (auto) 37.6 %; Mean Corpuscular Hemoglobin 31.2 pg (25-34); Mean Corpuscular Hgb Conc 32.7 g/dL (32-36); Mean Corpuscular Volume 95.4 fL (80-100); Mean Platelet Volume 8.9 fL (7.4-10.4); Monocytes % (auto) 13.1 %; Neutrophils # (auto) 2.89 K/uL (1.4-6.5); Neutrophils % (auto) 47.5 %; Platelet Count 391 K/uL (130-400); RDW Coefficient of Variation 12.9 % (11.5-14.5); RDW Standard Deviation 45.3 fL (36.4-46.3); Red Blood Count 4.75 M/uL (4.2-5.4); White Blood Count 6.09 K/uL (4.8-10.8)
[2021-05-09] MEDS: AMPICILLIN/SULBACTAM SOD 3,000 MG in 0.9 % SODIUM CHLORIDE 100 ML IV SCH ×4 (06:34→23:28)
[2021-05-09 06:55] LABS: Albumin Level 3.7 gm/dl (3.4-5.0); BUN Creatinine Ratio 25.4 (10-20); Bilirubin,Total 0.5 mg/dl (0.2-1.0); C Reactive Protein 1.22 mg/dl (0-0.5); Calcium 8.9 mg/dl (8.5-10.1); Creatinine Clr Calc Pharmacy 167.5 ml/min; Est GFR (African American) 144.6 ml/min; Est GFR (Non-African American) 124.7 ml/min; Globulin 3.6 gm/dl (2.5-4.0); Potassium 3.9 mmol/L (3.5-5.1); Total Protein 7.3 gm/dl (6.0-8.3)
[2021-05-09] MEDS: dexAMETHasone 6 MG in SYRINGE 0 ML IV SCH (07:18)
[2021-05-09] MEDS: ENOXAPARIN INJ 40 MG/0.4 ML SYR SQ SCH ×2 (08:25→20:26)
[2021-05-09] MEDS ORDERED: FUROSEMIDE INJ 20 MG/2 ML VIAL IV ONE (08:40)
--- NOTE | 2021-05-09 17:37 | Hospitalist Progress Note ---
Date of Service May 09, 2021 Assessment & Plan (1) Pneumonia due to COVID-19 virus: Plan: 26 yo F Hx anxiety admitted for acute hypoxic respiratory failure secondary to COVID 19 illness and suspected superimposed bacterial pneumonia. Acute hypoxic respiratory failure, COVID-19, superimposed community acquired pneumonia: CTA Chest with patchy diffuse consolidations suggestive of COVID-19 pneumonia, but also with more focal area of consolidation in RLL. Continue Unasyn. (With worsening earlier in her hospital stay considered whether or not we would need to change antibiotic coveragebut with CRP trending down, and MRSA nares negative, it is highly unlikely that Unasyn resistant bacteria are at play for the worsening) Showed progressive worseningCT only showing progressive pneumonia type findings. And now the worsening seems to have leveled out. Never fit criteria for baricitinib/tocilizumab Dexamethasone 6mg IV daily started on admission, will continue x10 days total. Remdesivir initiated 05/05, to complete 5 days of treatment. Supplemental oxygen as needed for O2 saturation <92%. Will continue to trend CRP, CBC, CMP daily. Fortunately appears to have plateaued yesterday and todayhopefully will start to show improvement soon Code Status: FULL CODE FEN: Regular diet DVT ppx: Lovenox 40mg BID given COVID-19 diagnosis Dispo: Med/Tele (2) Community acquired pneumonia: (3) Acute respiratory failure with hypoxia: Admission and Anticipated Discharge Date Admission Date: May 05, 2021 Subjective Feels about the same. Oxygen requirements the same. Proning. Definitely does not feel worse. Nursing notes no new problems either. Review of Systems Review of Systems: All systems reviewed & are unremarkable except as noted in HPI & below Physical Exam Physical Exam: In general she is awake and alert pleasant no distress. HEENT normocephalic atraumatic mucous membranes moist. Breathing unlabored no accessory muscle use good effort. Lungs are actually clear throughoutno rales rhonchi or wheezes, and the bibasilar diminished air entry has actually improved. Neuro shows cranial nerves II through XII grossly intact gross motor and sensory are intact. Results & Data Results & Data ([facility]) Vital Signs (Past 12 Hours) Vital Signs Temp Pulse Pulse Resp BP BP Pulse Ox 05/09/21 17:06 92 H 05/09/21 15:35 99.0 F 92 H 20 118/81 94 05/09/21 11:07 98.6 F 83 20 112/77 96 05/09/21 08:02 98.6 F 82 18 119/84 94 05/09/21 08:00 75 PG Care Time/CCT Total # of Minutes Spent Total Time Spent with Patient: Total time spent is greater than 50% in coordination of care (as documented) at patient's floor/unit and/or counseling patient: Coding Level of Care Code 76262 Subseq Hosp Care Lvl 3 Diagnoses Pneumonia due to COVID-19 virus U07.1; J12.82 Community acquired pneumonia J18.9 Acute respiratory failure with hypoxia J96.01
--- NOTE | 2021-05-09 17:37 | Billing Data ---
Date of Service May 09, 2021 Coding Level of Care Code 13208 Subseq Hosp Care Lvl 3
[2021-05-09] MEDS: REMDESIVIR 100 MG in SODIUM CHLORIDE 0.9% 230 ML IV SCH (20:26)
[2021-05-09] MEDS: ONDANSETRON INJ 2 MG/ML 2 ML VIAL IV PRN (21:52)
[2021-05-10] MEDS: AMPICILLIN/SULBACTAM SOD 3,000 MG in 0.9 % SODIUM CHLORIDE 100 ML IV SCH ×3 (06:01→16:21)
[2021-05-10] MEDS: ENOXAPARIN INJ 40 MG/0.4 ML SYR SQ SCH ×2 (07:07→21:29)
[2021-05-10] MEDS: dexAMETHasone 6 MG in SYRINGE 0 ML IV SCH (07:08)
[2021-05-10] MEDS: ACETAMINOPHEN 325 MG TAB PO PRN (07:54)
--- NOTE | 2021-05-10 08:31 | Hospitalist Progress Note ---
Date of Service May 10, 2021 Assessment & Plan (1) Pneumonia due to COVID-19 virus: Plan: Leora Arriaza is a 26y/o F with PMH significant for anxiety admitted for acute hypoxic respiratory failure secondary to COVID-19 illness and suspected superimposed bacterial pneumonia. Acute hypoxic respiratory failure: -in the setting of COVID-19, with concerns of superimposed community acquired pneumonia: -CTA Chest with patchy diffuse consolidations suggestive of COVID-19 pneumonia, with more focal area of consolidation in RLL. -Continue Unasyn -negative nasal MRSA ' -downtrending CRP since admission -decreasing oxygen requirement overnight -continue to wean oxygen as tolerated maintaining sats >92% -will attempt ambulation trial (2-step) later today if able to further wean oxygen support -does not meet criteria for baricitinib/tocilizumab -continue Decadron 6mg IV daily (continue x10 days total) -Remdesivir initiated 05/05, completed 5 day course on 05/10 -Will continue to trend CRP, CBC, CMP daily. Diet: Regular Code Status: FULL CODE DVT ppx: Lovenox 40mg BID given COVID-19 diagnosis (2) Community acquired pneumonia: (3) Acute respiratory failure with hypoxia: Admission and Anticipated Discharge Date Admission Date: May 05, 2021 Supervising Physician Co-Signing Physician Notes I personally examined the patient and verified all gomez points of history and exam, discussed case, and agree with decision making with Dr Velasquez feeling better, much less dyspnea at rest, improving COHCRAN vitals noted nad heent nc at mmm lungs overall cta b/l - faint bibasilar decreased breath sounds but overall improved. no r/r/w good effort. no focal neuro deficits. on 4L covid -she is improving -continue current care now -hopefully home soon Subjective Patient was seen this morning, reporting that she is feeling little better. Still having intermittent cough, and continuing to require oxygen support. Feels like her work of breathing has greatly reduced over the last several days. Would like to be off oxygen before she goes home, but recognizes that this may take some time given the extent of her illness. Review of Systems Review of Systems: All systems reviewed & are unremarkable except as noted in Subjective Physical Exam Constitutional: WD/WN, vitals as above Eyes: PERRL, conjunctivae normal, anicteric sclerae ENMT: external ear and nose normal, oropharynx normal Neck: normal visual inspection Cardiovascular: RRR, no murmur, no edema Gastrointestinal (Abdomen): normal bowel sounds, soft, nontender, no hepatosplenomegaly Musculoskeletal: no cyanosis or clubbing, extremities motor strength 5/5 Skin: no rashes, warm and dry Psychiatric: A+Ox3, euthymic affect Results & Data Results & Data ([facility]) Vital Signs (Past 12 Hours) Vital Signs Temp Pulse Pulse Resp BP Pulse Ox 05/10/21 07:35 36.9 C 85 20 112/78 95 05/10/21 05:05 86 05/10/21 03:26 36.6 C 75 20 105/70 94 05/10/21 00:33 97 05/09/21 23:32 97 05/09/21 23:01 37.1 C 62 20 106/70 98 Laboratory Results 05/10/21 05/10/21 Range/Units 07:50 07:50 WBC 9.33 (4.8-10.8) K/uL RBC 4.87 (4.2-5.4) M/uL Hgb 15.2 (12.0-16.0) g/dL Hct 45.9 (37-47) % MCV 94.3 (80-100) fL MCH 31.2 (25-34) pg MCHC 33.1 (32-36) g/dL RDW Std Deviation 44.2 (36.4-46.3) fL RDW Coeff of [place] 12.9 (11.5-14.5) % Plt Count 429 H (130-400) K/uL MPV 9.0 (7.4-10.4) fL Immature Gran % (Auto) 2.7 % Neut % (Auto) 51.3 % Lymph % (Auto) 31.8 % [place] % (Auto) 13.9 % Eos % (Auto) 0.1 % Baso % (Auto) 0.2 % Neut # (Auto) 4.78 (1.4-6.5) K/uL Lymph # (Auto) 2.97 (1.2-3.4) K/uL [place] # (Auto) 1.30 H (0.11-0.59) K/uL Eos # (Auto) 0.01 (0-0.5) K/uL Baso # (Auto) 0.02 (0-0.2) K/uL Immature Gran # (Auto) 0.25 H (0.00-0.02) K/uL Sodium 135 L (136-145) mmol/L Potassium 4.0 (3.5-5.1) mmol/L Chloride 104 (98-107) mmol/L Carbon Dioxide 28 (21-32) mmol/L Anion Gap 3 (3-11) BUN 15 (6-23) mg/dl Creatinine 0.57 L (0.6-1.2) mg/dl Est Cr Clr Drug Dosing 173.3 ml/min Est GFR ( Amer) 146.2 ml/min Est GFR (Non-Af Amer) 126.2 ml/min BUN/Creatinine Ratio 26.3 H (10-20) Glucose 76 (70-99(Fasting)) mg/dl Calcium 8.7 (8.5-10.1) mg/dl Total Bilirubin 0.4 (0.2-1.0) mg/dl AST 27 (13-39) U/L ALT 67 H (7-52) U/L Alkaline Phosphatase 45 (34-104) U/L C-Reactive Protein < 0.50 (0-0.5) mg/dl Total Protein 7.1 (6.0-8.3) gm/dl Albumin 3.6 (3.4-5.0) gm/dl Globulin 3.5 (2.5-4.0) gm/dl Albumin/Globulin Ratio 1.0 (0.9-2) Medications Administered Current Inpatient Medications Acetaminophen (Acetaminophen 325 Mg Tab) 650 mg PO Q4H PRN PRN Reason: Pain or Fever Stop: 06/04/21 16:51 Last Admin: 05/10/21 07:54 Dose: 650 mg Documented by: Enoxaparin Sodium (Enoxaparin Inj 40 Mg/0.4 Ml Syr) 40 mg SQ BID [facility] Stop: 06/04/21 20:59 Last Admin: 05/10/21 07:07 Dose: 40 mg Documented by: Dexamethasone 6 mg/ Syringe 1.5 mls @ 1 mls/min IV DAILY [facility] Stop: 05/16/21 08:59 Last Admin: 05/10/21 07:08 Dose: 1 mls/min Documented by: Ampicillin Sodium/Sulbactam Sodium 3,000 mg/ Sodium Chloride 108 mls @ 200 mls/hr IV Q6H ALICIA; Protocol Stop: 05/12/21 17:59 Last Infusion: 05/10/21 11:31 Dose: Infused Documented by: Levalbuterol HCl (Levalbuterol Hcl 0.63 Mg/3 Ml Neb) 0.63 mg NEB Q6R PRN; Protocol PRN Reason: sob/ wheezing Stop: 06/06/21 18:59 Last Admin: 05/07/21 21:55 Dose: 0.63 mg Documented by: Ondansetron HCl (Ondansetron Inj 2 Mg/Ml 2 Ml Vial) 4 mg IV Q6H PRN PRN Reason: Nausea Stop: 06/04/21 16:51 Last Admin: 05/09/21 21:52 Dose: 4 mg Documented by: Polyethylene Glycol (Polyethylene (Miralax) 17 Gm Pack) 17 gm PO DAILY PRN PRN Reason: Constipation Stop: 06/04/21 16:51 Sodium Chloride (Sodium Chloride 0.65% Na Soln 45 Ml ([place])) 1 sprays NA PRN PRN PRN Reason: Nasal Congestion/nasal irritat Stop: 06/06/21 17:22 Resident Activity Tracking Resident Involvement: Resident Care Provided Care Provided: Adult Hospital Medicine
[2021-05-10 09:02] LABS: Basophils # (auto) 0.02 K/uL (0-0.2); Basophils % (auto) 0.2 %; Eosinophils # (auto) 0.01 K/uL (0-0.5); Eosinophils % (auto) 0.1 %; Hematocrit (blood only) 45.9 % (37-47); Hemoglobin 15.2 g/dL (12.0-16.0); Immature Granulocytes # (auto) 0.25 K/uL (0.00-0.02); Immature Granulocytes % (auto) 2.7 %; Lymphocytes # (auto) 2.97 K/uL (1.2-3.4); Lymphocytes % (auto) 31.8 %; Mean Corpuscular Hemoglobin 31.2 pg (25-34); Mean Corpuscular Hgb Conc 33.1 g/dL (32-36); Mean Corpuscular Volume 94.3 fL (80-100); Monocytes % (auto) 13.9 %; Neutrophils # (auto) 4.78 K/uL (1.4-6.5); Neutrophils % (auto) 51.3 %; Platelet Count 429 K/uL (130-400); RDW Coefficient of Variation 12.9 % (11.5-14.5); RDW Standard Deviation 44.2 fL (36.4-46.3); Red Blood Count 4.87 M/uL (4.2-5.4); White Blood Count 9.33 K/uL (4.8-10.8)
[2021-05-10 09:30] LABS: Alanine Aminotransferase 67 U/L (7-52); Albumin Level 3.6 gm/dl (3.4-5.0); Alkaline Phosphatase 45 U/L (34-104); Anion Gap 3 (3-11); Aspartate Aminotransferase 27 U/L (13-39); BUN Creatinine Ratio 26.3 (10-20); Bilirubin,Total 0.4 mg/dl (0.2-1.0); Blood Urea Nitrogen 15 mg/dl (6-23); C Reactive Protein < 0.50 mg/dl (0-0.5); Calcium 8.7 mg/dl (8.5-10.1); Carbon Dioxide 28 mmol/L (21-32); Chloride 104 mmol/L (98-107); Creatinine Clr Calc Pharmacy 173.3 ml/min; Est GFR (African American) 146.2 ml/min; Est GFR (Non-African American) 126.2 ml/min; Globulin 3.5 gm/dl (2.5-4.0); Glucose 76 mg/dl (70-99(Fasting)); Sodium 135 mmol/L (136-145); Total Protein 7.1 gm/dl (6.0-8.3)
[2021-05-10] MEDS ORDERED: SODIUM CHLORIDE 0.65% NA SOLN 45 ML (OCEAN) PRN (12:28)
--- NOTE | 2021-05-10 15:26 | Billing Data ---
Date of Service May 10, 2021 Coding Level of Care Code 70158 Subseq Hosp Care Lvl 3
[2021-05-11] MEDS: AMPICILLIN/SULBACTAM SOD 3,000 MG in 0.9 % SODIUM CHLORIDE 100 ML IV SCH ×3 (00:43→13:07)
--- NOTE | 2021-05-11 07:12 | Hospitalist Progress Note ---
Date of Service May 11, 2021 Assessment & Plan (1) Pneumonia due to COVID-19 virus: Plan: Leora Arriaza is a 26y/o F with PMH significant for anxiety admitted for acute hypoxic respiratory failure secondary to COVID-19 illness and suspected superimposed bacterial pneumonia. Acute hypoxic respiratory failure: -in the setting of COVID-19, with concerns of superimposed community acquired pneumonia: -CTA Chest with patchy diffuse consolidations suggestive of COVID-19 pneumonia, with more focal area of consolidation in RLL. -Continue Unasyn -negative nasal MRSA ' -downtrending CRP since admission -decreasing oxygen requirement -continue to wean oxygen as tolerated maintaining sats >92% -did not meet criteria for baricitinib/tocilizumab -Decadron 6mg daily (continue x10 days total) -Remdesivir initiated 05/05, completed 5 day course on 05/10 Diet: Regular Code Status: FULL CODE DVT ppx: Lovenox 40mg BID given COVID-19 diagnosis (2) Community acquired pneumonia: (3) Acute respiratory failure with hypoxia: Admission and Anticipated Discharge Date Admission Date: May 05, 2021 Results & Data Results & Data ([facility]) Vital Signs (Past 12 Hours) Vital Signs Temp Pulse Pulse Resp BP Pulse Ox 05/11/21 06:16 99.0 F 78 18 94/60 L 93 05/11/21 03:30 98.8 F 78 18 92/63 L 94 05/10/21 22:57 97.7 F 84 22 113/76 93 05/10/21 22:19 60 05/10/21 19:16 99.0 F 78 20 104/69 93 PG Care Time/CCT Total # of Minutes Spent Total Time Spent with Patient: Total time spent is greater than 50% in coordination of care (as documented) at patient's floor/unit and/or counseling patient: Coding Diagnoses Pneumonia due to COVID-19 virus U07.1; J12.82 Community acquired pneumonia J18.9 Acute respiratory failure with hypoxia J96.01
[2021-05-11] MEDS: ENOXAPARIN INJ 40 MG/0.4 ML SYR SQ SCH (07:40)
[2021-05-11] MEDS: dexAMETHasone 6 MG in SYRINGE 0 ML IV SCH (07:41)
--- NOTE | 2021-05-11 16:08 | Discharge Summary ---
Date of Service May 11, 2021 Admission HPI Per Admitting Provider 26 yo F Hx anxiety presented to the ER for worsening dyspnea specifically on exertion. She was tested for COVID-19 on 05/01 and was informed she was positive on 05/02. She developed symptoms on 05/02 including cough, rhinorrhea. In the ER she was hypoxic to 88% on room air, improved with 2LNC. She was also mildly tachycardic. Due to Hx COCP use and recent COVID 19 infection with tachycardia and hypoxia a CTA Chest was performed which showed no evidence of PE but did reveal bilateral multifocal pneumonia consistent with COVID pneumonia. She was given IV steroids and due to hypoxia hospitalist service was consulted for admission. Principal Diagnosis acute hypoxic respiratory failure covid pneumonia Discharge Exam The patient appeared well Vital signs as documented. Lungs are clear to auscultation and appear unlabored very little changes from her Covid pneumonia residual Cardiac exam, Rhythm is regular.. No murmurs, rubs or gallops. Abdominal exam reveals normal bowel sounds, soft non tender, no masses Extremities are nonedematous and both pedal pulses are normal. Neurologic exam is alert and oriented, no focal loss of strength or sensation Skin is without bruises or rashes Psychologically is without concerns for anxiety or depression. Discharge Data Allergies Allergy/AdvReac Type Severity Reaction Status Date / Time nickel Allergy Mild Rash Verified 05/05/21 12:16 Consultations 05/05/21 13:02 ED Decision to Admit Stat Ordered Studies 05/05/21 10:30 CT angio chest PE protocol Stat 05/07/21 11:16 CT angio chest PE protocol Urgent Hospital Course (1) Pneumonia due to COVID-19 virus: Leora Arriaza is a 26y/o F with PMH significant for anxiety admitted for acute hypoxic respiratory failure secondary to COVID-19 illness and suspected superimposed bacterial pneumonia. Acute hypoxic respiratory failure: -in the setting of COVID-19, with concerns of superimposed community acquired pneumonia: -CTA Chest with patchy diffuse consolidations suggestive of COVID-19 pneumonia, with more focal area of consolidation in RLL. -Continue Unasyn -negative nasal MRSA ' -downtrending CRP since admission -decreasing oxygen requirement Patient on two-step oxygen testing requires 2 L with exertion, patient to be on isolation or away from work for 11 days able to return to work on the but this is pending there human resource returned to work policy -did not meet criteria for baricitinib/tocilizumab -Decadron 6mg daily (continue x10 days total) -Remdesivir initiated 05/05, completed 5 day course on 05/10 Diet: Regular Code Status: FULL CODE DVT ppx: Lovenox 40mg BID given COVID-19 diagnosis (2) Community acquired pneumonia: (3) Acute respiratory failure with hypoxia: Total Time Total Time Spent Total Time Spent (In Minutes): It required greater than 30 minutes to prepare this patient for discharge this includes discussion with case management and procedure required to procure home oxygen Discharge Plan Discharge Items Patient Disposition: Home - Self-Care Reason For Visit: ACUTE HYPOXIC RESPIRATORY FAILURE, COVID 19, CAP Discharge Diagnosis: Acute hypoxic respiratory failure covid pneumonia Activity: Per Instructions section Non-emergency contact: Primary Care Provider Call non-emergency contact if: your symptoms worsen and you have a fever Follow-up/Referrals: Karuna Salamanca DO [Primary Care Provider] - 05/25/21 9:20 am Diet: Regular Addtl Attending Provider Instructions: You have been diagnosed with covid infection, it would be recommended that you quarantine yourself for 10 days from your first test or first symptoms, and if at the 10th day you have no symptoms the you can come off quarantine but use common sense precautions. Quarantine means attempting to stay away from people who have not had an active covid infection in the past, and if you have to be around others to wear a mask even if you are indoors, do not share a room to sleep in with others until you are out of quarantine. If you still have symptoms at the 10th day, continue to quarantine until you are symptom free for 48 hours please see your family doctor in one week, they will help you reduce your oxygen level Pending Studies at Discharge: No Stand-Alone Forms: [employer], Work/School Release, Smoking Cessation Medications and DC Order Prescriptions: New dexamethasone [Decadron] 6 mg tablet 6 mg PO DAILY Qty: 4 RF: 0 (DME) Oxygen Home Liters Per Minute See Rx Instructions .Route Qty: 2 RF: 0 Continued multivitamin tablet 1 tab PO QAM RF: 0 ibuprofen 800 mg tablet 800 mg PO Q8H PRN (Reason: pain) Qty: 30 RF: 0 desogestrel-ethinyl estradiol [Isibloom] 0.15-0.03 mg tablet 1 tab PO HS RF: 0 Discharge Orders: Discharge Order (Routine); Ordered 05/11/21 Ordered By: John Del Rio Admission Data Admit Date/Time: 05/05/21 15:03 Attending Provider: John Del Rio Admit Provider: Romy Solis Primary Care Provider: Karuna Salamanca Other Providers: Fercho Huerta Other Interventions: Discharge Summary Assessment (RN) Last Done: 05/11/21 14:38 Coding Level of Care Code D/C DAY MANAGEMENT >30 MINS Diagnoses Pneumonia due to COVID-19 virus U07.1; J12.82 Community acquired pneumonia J18.9 Acute respiratory failure with hypoxia J96.01
== END 2021-05-11 16:30 | disposition home or self-care (01) | DRG 177 ==
LOC: ED 10:06 → SUATTDRO 15:03 → EDINP 15:03 → 2W 05-06 08:51